=== PATIENT | male | born 1970 | race Caucasian/White ===

== ENCOUNTER 2017-03-20 15:31 | Inpatient (IN) | payer MEDICAID ==
[2017-03-20] MEDS ORDERED: KETOROLAC TROMETHAMINE INJ/PF 30 MG/1 ML SDV IV ONE (16:04)
--- NOTE | 2017-03-20 16:04 | ER Document Report ---
ED Extremity Problem, Lower <JOHNSON ARDON - Last Filed: 03/20/17 16:47> - General Mode of Arrival: Medic Information source: Patient TRAVEL OUTSIDE OF THE [place] IN LAST 30 DAYS: No <ZULEIKA RINCON - Last Filed: 03/20/17 16:56> - General Chief Complaint: Fall Injury Stated Complaint: RIGHT UPPER LEG INJURY Time Seen by Provider: 03/20/17 16:03 Notes: Patient is a 46-year-old male who presents to the emergency department today with complaints of right hip pain. Patient states he fell out of a [employer] truck. Patient states he landed on his right hip and has right hip pain. Patient states he is unable to move his right leg. (ZULEIKA RINCON) - Related Data Allergies/Adverse Reactions: Cephalosporins Allergy (Mild, Verified 03/20/17 15:47) Penicillins Allergy (Verified 03/20/17 15:47) phenytoin sodium [From Dilantin] Adverse Reaction (Intermediate, Verified 15:47) redness phenytoin sodium extended [From Dilantin] Adverse Reaction (Intermediate, Verified 03/20/17 15:47) redness Home Medications: Current Home Medications Pregabalin [Lyrica] 150 mg PO BID 03/20/17 [History] Past Medical History - General Information source: Patient - Social History Smoking Status: Current Every Day Smoker Cigarette use (# per day): Yes Frequency of alcohol use: None Drug Abuse: None Lives with: Family Family History: Reviewed & Not Pertinent Pulmonary Medical History: Reports: Hx Asthma, Hx Pneumonia Neurological Medical History: Reports: Hx Seizures - Onset at the age of 8. GI Medical History: Reports: Hx Gastroesophageal Reflux Disease Musculoskeltal Medical History: Reports Hx Arthritis - Lumbar spine, neck. Psychiatric Medical History: Reports: Hx Anxiety, Hx Attention Deficit Hyperactivity Disorder, Hx Depression Traumatic Medical History: Reports: Hx Traumatic Brain Injury Past Surgical History: Reports: Hx Adenoidectomy, Hx Neurologic Surgery - CRANIOTOMY, RECENT VNS IMPLANTATION (AUG 2012)., Hx Orthopedic Surgery - Right hand surgery, Hx Tonsillectomy - Immunizations Immunizations up to date: Yes Hx Diphtheria, Pertussis, Tetanus Vaccination: Yes - 2008 Hx Pneumococcal Vaccination: 07/01/00 <ZULEIKA RINCON - Last Filed: 03/20/17 16:56> Review of Systems - Review of Systems Constitutional: No symptoms reported EENT: No symptoms reported Cardiovascular: No symptoms reported Respiratory: No symptoms reported Gastrointestinal: No symptoms reported Genitourinary: No symptoms reported Male Genitourinary: No symptoms reported Musculoskeletal: See HPI, Joint pain - right hip Skin: No symptoms reported Hematologic/Lymphatic: No symptoms reported Neurological/Psychological: No symptoms reported -: Yes All other systems reviewed and negative <ZULEIKA RINCON - Last Filed: 03/20/17 16:56> Physical Exam <JOHNSON ARDON - Last Filed: 03/20/17 16:47> <ZULEIKA RINCON - Last Filed: 03/20/17 16:56> - Vital signs Vitals: Temp Pulse BP Pulse Ox 98.3 F 77 109/64 91 L 03/20/17 15:56 03/20/17 15:56 03/20/17 15:56 03/20/17 15:56 - Notes Notes: Physical Exam: General: Alert, appears uncomfortable secondary to pain. HEENT: Normocephalic. Atraumatic. PERRL. Extraocular movements intact. Oropharynx clear. Neck: Supple. Non-tender. Respiratory: No respiratory distress. Decreased breath sounds bilaterally. Cardiovascular: Regular rate and rhythm. Abdominal: Normal Inspection. Non-tender. No distension. Normal Bowel Sounds. Back: Non-tender. No deformity or step off. Extremities: Upper extremities: Normal inspection. Normal ROM. Lower extremities: Tenderness with palpation and range of motion testing in right hip. Neurovascularly intact distally. Neurological: Normal cognition. AAOx4. Normal speech. Psychological: Normal affect. Normal Mood. Skin: Warm. Dry. Normal color. (SERGEY,ZULEIKA) Course <JOHNSON ARDON - Last Filed: 03/20/17 16:47> <ZULEIKA RINCON - Last Filed: 03/20/17 16:56> - Re-evaluation Re-evalutation: 03/20/17 16:43 Patient has not eaten since last night, last drink was 15 min prior to accident. Just spoke with Dr. Ahuja, agrees to see the patient and consult but wants hospitalist to admit, states to let patient eat today, NPO ater midnight 03/20/17 16:51 Dr. Rodriges agrees to accept patient 03/20/17 16:52 Updated patient. States he took all medications this morning as directed. (ZULEIKA RINCON) - Vital Signs Vital signs: Temp Pulse Resp BP Pulse Ox 98.3 F 77 109/64 91 L 03/20/17 15:56 03/20/17 15:56 03/20/17 15:56 03/20/17 15:56 Discharge - Discharge Admitting Provider: Dr. Rodriges Unit Admitted: Surgical Floor <JOHNSON ARDON - Last Filed: 03/20/17 16:47> <ZULEIKA RINCON - Last Filed: 03/20/17 16:56> - Discharge Clinical Impression: Closed intertrochanteric fracture of right hip Condition: Good Disposition: ADMITTED INPATIENT Scribe Documentation - Scribe Written by Scribe:: Jodie Fang, 03/20/17 1619 acting as scribe for :: Salbador <ZULEIKA RINCON - Last Filed: 03/20/17 16:56>
--- NOTE | 2017-03-20 16:35 | RADIOLOGY REPORT (SQ) ---
EXAM DESCRIPTION: HIP RIGHT AP/LATERAL COMPLETED DATE/TIME: 03/20/2017 4:25 pm REASON FOR STUDY: injury COMPARISON: None. NUMBER OF VIEWS: Two views. TECHNIQUE: AP pelvis and additional frog-leg view of the right hip. LIMITATIONS: None. FINDINGS: MINERALIZATION: Normal. RIGHT HIP: There is an intertrochanteric fracture of hip. Lesser trochanter exists as a separate fra gment. LEFT HIP: No fracture or dislocation. No worrisome bone lesions. PUBIS AND ISCHIUM: No fracture. PELVIS: No fracture. SACRUM: No fracture or dislocation. No worrisome bone lesions. LOWER LUMBAR SPINE: No fracture or dislocation. No worrisome bone lesions. No significant disc disea se. SOFT TISSUES: No findings. OTHER: No other significant finding. IMPRESSION: Intertrochanteric fracture of the right hip. TECHNICAL DOCUMENTATION: JOB ID: [id number] [employer]- All Rights Reserved
--- NOTE | 2017-03-20 16:44 | RADIOLOGY REPORT (SQ) ---
EXAM DESCRIPTION: CHEST SINGLE VIEW COMPLETED DATE/TIME: 03/20/2017 4:31 pm REASON FOR STUDY: PER DR. ARDON FRACTURED HIP COMPARISON: 05/31/2016 EXAM PARAMETERS: NUMBER OF VIEWS: One view. TECHNIQUE: Single frontal radiographic view of the chest acquired. RADIATION DOSE: NA LIMITATIONS: None. FINDINGS: LUNGS AND PLEURA: No opacities, masses or pneumothorax. No pleural effusion. MEDIASTINUM AND HILAR STRUCTURES: No masses. Contour normal. HEART AND VASCULAR STRUCTURES: Heart normal in size. Normal vasculature. BONES: No acute findings. HARDWARE: Stimulator device is present. OTHER: No other significant finding. IMPRESSION: NO ACUTE RADIOGRAPHIC FINDING IN THE CHEST. TECHNICAL DOCUMENTATION: JOB ID: [id number]
[2017-03-20] MEDS ORDERED: ONDANSETRON 4 MG TAB.RAPDIS PO PRN (17:26)
[2017-03-20] MEDS ORDERED: IPRATROPIUM/ALBUTEROL 0.5-2.5 MG/3 ML AMPUL NEB PRN (17:26)
[2017-03-20] MEDS ORDERED: ACETAMINOPHEN 325 MG TABLET PO PRN (17:26)
[2017-03-20] MEDS ORDERED: NORMAL SALINE 1000 ML 1,000 ML IV PRN (17:26)
[2017-03-20 17:42] LABS: ABSOLUTE EOSINOPHILS # (AUTO) 0.1 10^3/uL (0.0-0.6); ABSOLUTE LYMPHOCYTES (AUTO) 2.5 10^3/uL (0.5-4.7); ABSOLUTE MONOCYTES (AUTO) 0.8 10^3/uL (0.1-1.4); ABSOLUTE NEUT (AUTO) 6.6 10^3/uL (1.7-8.2); BASOPHILS % (AUTO) 0.5 % (0-2); EOSINOPHILS % (AUTO) 1.2 % (0-6); HEMATOCRIT 36.9 % (37.9-51.0); HEMOGLOBIN 12.9 g/dL (13.5-17.0); HGB HCT DIFFERENCE 1.8; LYMPHOCYTES % (AUTO) 24.9 % (13-45); MEAN CORPUSCULAR HEMOGLOBIN 33.3 pg (27.0-33.4); MEAN CORPUSCULAR HGB CONC 34.9 g/dL (32.0-36.0); MEAN CORPUSCULAR VOLUME 95 fl (80-97); RED BLOOD COUNT 3.87 10^6/uL (4.35-5.55); RED CELL DISTRIBUTION WIDTH 13.7 % (11.5-14.0); SEGMENTED NEUTROPHILS % (AUTO) 65.4 % (42-78); WHITE BLOOD COUNT 10.1 10^3/uL (4.0-10.5)
[2017-03-20] MEDS ORDERED: HYDROCODONE/ACETAMINOPHEN 7.5-325 MG TABLET PO PRN (17:43)
[2017-03-20] MEDS ORDERED: LORAZEPAM INJ 2 MG/1 ML VIAL IV PRN (17:48)
[2017-03-20 17:50] LABS: PROTHROMBIN TIME 13.5 SEC (11.4-15.4)
[2017-03-20 17:53] LABS: ALANINE AMINOTRANSFERASE 29 U/L (21-72); ALBUMIN 4.1 g/dL (3.5-5.0); ALKALINE PHOSPHATASE 111 U/L (38-126); ANION GAP 9 (5-19); ASPARTATE AMINO TRANSFERASE 34 U/L (17-59); BILIRUBIN,DIRECT 0.4 mg/dL (0.0-0.4); BILIRUBIN,TOTAL 0.7 mg/dL (0.2-1.3); BLOOD UREA NITROGEN 21 mg/dL (7-20); CALCIUM 9.4 mg/dL (8.4-10.2); CARBON DIOXIDE 31 mmol/L (22-30); CHLORIDE 96 mmol/L (98-107); CREATININE RESULT 1.06 mg/dL (0.52-1.25); GLUCOSE 81 mg/dL (75-110); POTASSIUM 3.1 mmol/L (3.6-5.0); SODIUM 135.8 mmol/L (137-145); TOTAL PROTEIN 6.8 g/dL (6.3-8.2)
[2017-03-20] MEDS ORDERED: POTASSIUM CHLORIDE 10 MEQ TABLET.SA PO ONE (18:09)
--- NOTE | 2017-03-20 18:14 | PDOC H&P ---
History of Present Illness Admission Date/PCP: 03/20/17 17:30 SUHAIL UREÑA MD Patient complains of: Right Hip Pain History of Present Illness: EULALIO CASE is a 46 year old male presents to the hospital after falling off the back of truck today. Patient states that he was trying to step off of the back of a truck when he lost his balance and fell on his right side. Patient states that he felt immediate right hip pain after landing on the ground. Patient also reports that he scraped his right elbow. Patient denies any chest pain shortness of breath fever nausea vomiting or diarrhea. Patient does report having productive cough. Pt states that phlegm has been brown to yellow in color. Patient reports that he usually has one seizure a month to one seizure every 2 months[address] Patient reports that Dr. Bolaños is his neurologist. Past Medical History Pulmonary Medical History: Reports: Asthma, Pneumonia Neurological Medical History: Reports: Seizures - Onset at the age of 8. GI Medical History: Reports: Gastroesophageal Reflux Disease Musculoskeltal Medical History: Reports: Arthritis - Lumbar spine, neck. Psychiatric Medical History: Reports: Attention Deficit Hyperactivity Disorder, Depression Traumatic Medical History: Reports: Traumatic Brain Injury Hematology: Denies: Anemia Past Surgical History Past Surgical History: Reports: Orthopedic Surgery - Right hand surgery, Tonsillectomy Social History Lives with: Family Smoking Status: Current Every Day Smoker Frequency of Alcohol Use: Rare Family History Family History: Reviewed & Not Pertinent Parental Family History Reviewed: Yes Children Family History Reviewed: Yes Sibling(s) Family History Reviewed.: Yes Medication/Allergy Home Medications: Cetirizine HCl [Zyrtec 10 mg Tablet] 10 mg PO DAILY 03/20/17 Hydrochlorothiazide [Hydrodiuril 25 mg Tablet] 25 mg PO DAILY 03/20/17 Lacosamide [Vimpat] 200 mg PO Q12 03/20/17 Levetiracetam [Levetiracetam ER] 1,000 mg PO Q12 03/20/17 Pregabalin [Lyrica] 150 mg PO Q12 03/20/17 Allergies/Adverse Reactions: Cephalosporins Allergy (Mild, Verified 03/20/17 15:47) Penicillins Allergy (Verified 03/20/17 15:47) phenytoin sodium [From Dilantin] Adverse Reaction (Intermediate, Verified 15:47) redness phenytoin sodium extended [From Dilantin] Adverse Reaction (Intermediate, Verified 03/20/17 15:47) redness Review of Systems Constitutional: ABSENT: chills, fever(s), headache(s), weight gain, weight loss Eyes: ABSENT: visual disturbances Ears: ABSENT: hearing changes Cardiovascular: ABSENT: chest pain, dyspnea on exertion, edema, orthropnea, palpitations Respiratory: ABSENT: cough, hemoptysis Gastrointestinal: ABSENT: abdominal pain, constipation, diarrhea, hematemesis, hematochezia, nausea, vomiting Genitourinary: ABSENT: dysuria, hematuria Musculoskeletal: ABSENT: joint swelling Integumentary: ABSENT: rash, wounds Neurological: PRESENT: other - Seizure Psychiatric: ABSENT: anxiety, depression, homidical ideation, suicidal ideation Endocrine: ABSENT: cold intolerance, heat intolerance, polydipsia, polyuria Hematologic/Lymphatic: ABSENT: easy bleeding, easy bruising Physical Exam Vital Signs: Temp Pulse Resp BP Pulse Ox 98.3 F 77 109/64 91 L 03/20/17 15:56 03/20/17 15:56 03/20/17 15:56 03/20/17 15:56 General appearance: PRESENT: no acute distress, well-developed, well-nourished Head exam: PRESENT: atraumatic, normocephalic Eye exam: PRESENT: conjunctiva pink, EOMI, PERRLA. ABSENT: scleral icterus Ear exam: PRESENT: normal external ear exam Mouth exam: PRESENT: moist, tongue midline Neck exam: ABSENT: carotid bruit, JVD, lymphadenopathy, thyromegaly Respiratory exam: PRESENT: clear to auscultation hitesh. ABSENT: rales, rhonchi, wheezes Cardiovascular exam: PRESENT: RRR. ABSENT: diastolic murmur, rubs, systolic murmur Pulses: PRESENT: normal dorsalis pedis pul Vascular exam: PRESENT: normal capillary refill GI/Abdominal exam: PRESENT: normal bowel sounds, soft. ABSENT: distended, guarding, mass, organolmegaly, rebound, tenderness Rectal exam: PRESENT: deferred Extremities exam: PRESENT: other - right elbow abrasion, right hip tenderness to palpation Musculoskeletal exam: PRESENT: tenderness - right hip tenderness Neurological exam: PRESENT: alert, awake, oriented to person, oriented to place , oriented to time, oriented to situation, CN II-XII grossly intact. ABSENT: motor sensory deficit Psychiatric exam: PRESENT: appropriate affect, normal mood. ABSENT: homicidal ideation, suicidal ideation Skin exam: PRESENT: other - +right elbow abrasion Results Impressions: Chest X-Ray 03/20/17 00:00 IMPRESSION: NO ACUTE RADIOGRAPHIC FINDING IN THE CHEST. Hip/Pelvis X-Ray 03/20/17 15:38 IMPRESSION: Intertrochanteric fracture of the right hip. Assessment & Plan - Diagnosis (1) Closed intertrochanteric fracture of right hip Qualifiers: Encounter type: initial encounter Is this a current diagnosis for this admission?: Yes Plan: Will have Orthopedic see pt. Will place on pain medication. (2) Abrasion of right elbow Qualifiers: Encounter type: initial encounter Qualified Code(s): S50.311A - Abrasion of right elbow, initial encounter Is this a current diagnosis for this admission?: Yes Plan: Bacitracin. (3) Hypokalemia Is this a current diagnosis for this admission?: Yes Plan: Potassium Chloride 60 mEq PO X 1. Will check BMP and magnesium. (4) Seizure Is this a current diagnosis for this admission?: Yes Plan: Will continue home medications. Will write for Ativan PRN. (5) DVT prophylaxis Is this a current diagnosis for this admission?: Yes Plan: heparin. Communication placed to hold heparin day of surgery. - Time Time Spent: 30 to 50 Minutes
--- NOTE | 2017-03-20 18:39 | PDOC CONSULTATION ---
Consultation Consult Date: 03/20/17 Consult reason:: Right intertrochanteric hip fracture History of Present Illness Admission Date/PCP: 03/20/17 17:30 SUHAIL UREÑA MD Patient complains of: Right hip pain and inability to weight-bear History of Present Illness: 46-year-old gentleman who is status post fall today off of the back of a truck who fell directly onto his right hip. Immediately had pain and deformity with inability to weight-bear. Patient was brought by EMS to the hospital where he was diagnosed with a right intertrochanteric hip fracture. Patient has history of seizures but believe this fall was due to mechanical cause and not from seizure. Denies any numbness or tingling or paresthesias. Complains of attempted range of motion will cause significant pain in the groin and is sharp pain. No other extremity complaints of pain or deformity. pain 5 out of 5 with motion. Past Medical History Pulmonary Medical History: Reports: Asthma, Pneumonia Neurological Medical History: Reports: Seizures - Onset at the age of 8. GI Medical History: Reports: Gastroesophageal Reflux Disease Musculoskeltal Medical History: Reports: Arthritis - Lumbar spine, neck. Psychiatric Medical History: Reports: Attention Deficit Hyperactivity Disorder, Depression Traumatic Medical History: Reports: Traumatic Brain Injury Hematology: Denies: Anemia Past Surgical History Past Surgical History: Reports: Orthopedic Surgery - Right hand surgery, Tonsillectomy Social History Lives with: Family Smoking Status: Current Every Day Smoker Frequency of Alcohol Use: Rare - Advance Directive Resuscitation Status: Full Code Family History Family History: Reviewed & Not Pertinent Parental Family History Reviewed: No Children Family History Reviewed: No Sibling(s) Family History Reviewed.: No Medication/Allergy Home Medications: Cetirizine HCl [Zyrtec 10 mg Tablet] 10 mg PO DAILY 03/20/17 Hydrochlorothiazide [Hydrodiuril 25 mg Tablet] 25 mg PO DAILY 03/20/17 Lacosamide [Vimpat] 200 mg PO Q12 03/20/17 Levetiracetam [Levetiracetam ER] 1,000 mg PO Q12 03/20/17 Pregabalin [Lyrica] 150 mg PO Q12 03/20/17 Allergies/Adverse Reactions: Cephalosporins Allergy (Mild, Verified 03/20/17 15:47) Penicillins Allergy (Verified 03/20/17 15:47) phenytoin sodium [From Dilantin] Adverse Reaction (Intermediate, Verified 15:47) redness phenytoin sodium extended [From Dilantin] Adverse Reaction (Intermediate, Verified 03/20/17 15:47) redness Review of Systems All systems: reviewed and no additional remarkable complaints except as stated Physical Exam Vital Signs: Temp Pulse Resp BP Pulse Ox 36.8 C 77 109/64 91 L 03/20/17 15:56 03/20/17 15:56 03/20/17 15:56 03/20/17 15:56 General appearance: PRESENT: no acute distress Head exam: PRESENT: atraumatic Eye exam: PRESENT: EOMI. ABSENT: conjunctival injection, nystagmus, periorbital swelling Neck exam: ABSENT: lymphadenopathy, tracheal deviation Respiratory exam: PRESENT: symmetrical, unlabored. ABSENT: tachypnea Pulses: PRESENT: normal dorsalis pedis pul Vascular exam: PRESENT: normal capillary refill GI/Abdominal exam: PRESENT: soft. ABSENT: organolmegaly, tenderness Neurological exam: PRESENT: alert, awake, oriented to person, oriented to place , oriented to time Skin exam: PRESENT: intact Adult Front & Back Image: 1 - Right lower extremity is shortened and externally rotated. Tender palpation over the groin. Pain with attempted range of motion in the groin. Distally sensation is intact to light touch. Good capillary refill and pedal pulse. 5 out of 5 motor distally. Results Impressions: Chest X-Ray 03/20/17 00:00 IMPRESSION: NO ACUTE RADIOGRAPHIC FINDING IN THE CHEST. Hip/Pelvis X-Ray 03/20/17 15:38 IMPRESSION: Intertrochanteric fracture of the right hip. Status: Image reviewed by me Assessment & Plan - Diagnosis (1) Closed intertrochanteric fracture of right hip Qualifiers: Encounter type: initial encounter Fracture alignment: displaced Qualified Code(s): S72.141A - Displaced intertrochanteric fracture of right femur, initial encounter for closed fracture Is this a current diagnosis for this admission?: Yes Plan: 46-year-old gentleman with displaced right intertrochanteric hip fracture. Discussed the pros and cons of proceeding with intramedullary nailing and fixation of the right hip fracture. Risk and benefits were discussed and the patient agreed to consent for surgery. We will place him n.p.o. and have him bedrest for tonight. No anticoagulation tonight. Will plan to proceed with surgery tomorrow. Continue pain control in the meantime.
--- NOTE | 2017-03-20 18:45 | EKG REPORT ---
SEVERITY:- NORMAL ECG - SINUS RHYTHM : Confirmed by: Geovanni Perez MD 20-Mar-2017 18:44:43
[2017-03-20] MEDS: HEPARIN SOD (PORCINE) 5,000 UNIT/ML 1 ML SYRINGE SUBCUT SCH (21:44)
[2017-03-20] MEDS ORDERED: (PENDING PHARMACY ID) (Lacosamide [Vimpat] 200 MG) PO SCH (22:00)
[2017-03-20] MEDS: LEVETIRACETAM XR 500 MG TAB.SR.24H PO SCH (22:03)
[2017-03-20] MEDS: LACOSAMIDE 100 MG TABLET PO SCH (22:10)
[2017-03-20] MEDS: PREGABALIN 75 MG CAPSULE PO SCH (22:10)
[2017-03-21 01:17] LABS: APPEARANCE,URINE CLEAR; BILIRUBIN,URINE NEGATIVE (NEGATIVE); GLUCOSE, URINE NEGATIVE (NEGATIVE); KETONES,URINE NEGATIVE (NEGATIVE); LEUKOCYTE ESTERASE,URINE NEGATIVE (NEGATIVE); NITRITE,URINE NEGATIVE (NEGATIVE); PROTEIN,URINE NEGATIVE (NEGATIVE); URINE SPECIFIC GRAVITY 1.018
[2017-03-21] MEDS: MORPHINE SULFATE 10 MG/ML INJ IV PRN (02:57)
[2017-03-21 04:35] LABS: ABSOLUTE EOSINOPHILS # (AUTO) 0.2 10^3/uL (0.0-0.6); ABSOLUTE LYMPHOCYTES (AUTO) 2.5 10^3/uL (0.5-4.7); ABSOLUTE MONOCYTES (AUTO) 0.9 10^3/uL (0.1-1.4); ABSOLUTE NEUT (AUTO) 6.9 10^3/uL (1.7-8.2); BASOPHILS % (AUTO) 0.4 % (0-2); HEMATOCRIT 32.6 % (37.9-51.0); HEMOGLOBIN 11.7 g/dL (13.5-17.0); HGB HCT DIFFERENCE 2.5; LYMPHOCYTES % (AUTO) 23.4 % (13-45); MEAN CORPUSCULAR HGB CONC 35.8 g/dL (32.0-36.0); MEAN CORPUSCULAR VOLUME 95 fl (80-97); MONOCYTES % (AUTO) 8.5 % (3-13); RED BLOOD COUNT 3.44 10^6/uL (4.35-5.55); RED CELL DISTRIBUTION WIDTH 13.8 % (11.5-14.0); SEGMENTED NEUTROPHILS % (AUTO) 65.7 % (42-78); WHITE BLOOD COUNT 10.5 10^3/uL (4.0-10.5)
[2017-03-21 04:44] LABS: PARTIAL THROMBOPLASTIN TIME 31.2 SEC (23.5-35.8)
[2017-03-21 04:48] LABS: ALANINE AMINOTRANSFERASE 29 U/L (21-72); ALBUMIN 3.4 g/dL (3.5-5.0); ALKALINE PHOSPHATASE 101 U/L (38-126); ANION GAP 9 (5-19); ASPARTATE AMINO TRANSFERASE 30 U/L (17-59); BILIRUBIN,DIRECT 0.4 mg/dL (0.0-0.4); BILIRUBIN,TOTAL 0.6 mg/dL (0.2-1.3); BLOOD UREA NITROGEN 22 mg/dL (7-20); CALCIUM 8.9 mg/dL (8.4-10.2); CARBON DIOXIDE 29 mmol/L (22-30); CHLORIDE 101 mmol/L (98-107); CREATININE RESULT 1.05 mg/dL (0.52-1.25); GLUCOSE 90 mg/dL (75-110); POTASSIUM 3.5 mmol/L (3.6-5.0); SODIUM 138.8 mmol/L (137-145); TOTAL PROTEIN 5.7 g/dL (6.3-8.2)
[2017-03-21] MEDS: HEPARIN SOD (PORCINE) 5,000 UNIT/ML 1 ML SYRINGE SUBCUT SCH ×2 (05:01→13:58)
[2017-03-21] MEDS ORDERED: LANSOPRAZOLE 30 MG TAB.RAP.DR PO SCH (06:00)
[2017-03-21] MEDS: LACOSAMIDE 100 MG TABLET PO SCH ×2 (10:17→22:31)
[2017-03-21] MEDS: HYDROCHLOROTHIAZIDE 25 MG TABLET PO SCH (10:17)
[2017-03-21] MEDS: PREGABALIN 75 MG CAPSULE PO SCH ×2 (10:17→22:31)
[2017-03-21] MEDS: CETIRIZINE 10 MG TABLET PO SCH (10:17)
[2017-03-21] MEDS: LEVETIRACETAM XR 500 MG TAB.SR.24H PO SCH ×2 (10:29→22:31)
[2017-03-21] MEDS ORDERED: CLINDAMYCIN 600 MG/D5W RTU 600 MG/50 ML RTUPB IV ONE (12:18)
[2017-03-21] MEDS ORDERED: ACETAMINOPHEN 100 ML IV ONE (12:38)
[2017-03-21] MEDS ORDERED: PROPOFOL INJ 200 MG/20 ML VIAL IV ONE (12:38)
[2017-03-21] MEDS ORDERED: FENTANYL CITRATE INJ/PF 250 MCG/5 ML AMPULE ONE (12:38)
[2017-03-21] MEDS ORDERED: MIDAZOLAM 2 MG/2 ML INJ ONE (12:38)
[2017-03-21] MEDS ORDERED: HYDROMORPHONE HCL INJ/PF 2 MG/ML AMPULE ONE (12:39)
[2017-03-21] MEDS ORDERED: IBUPROFEN INJ 800 MG/8 ML VIAL IV ONE (12:39)
[2017-03-21] MEDS ORDERED: PROMETHAZINE HCL INJ 25 MG/1 ML VIAL IV PRN ×2 (13:26)
[2017-03-21] MEDS ORDERED: ONDANSETRON HCL INJ/PF 4 MG/2 ML SDV IV PRN (13:26)
[2017-03-21] MEDS ORDERED: FENTANYL CITRATE INJ/PF 100 MCG/2 ML AMPUL IV PRN ×3 (13:26)
[2017-03-21] MEDS ORDERED: MORPHINE SULFATE 10 MG/ML INJ IV PRN (13:26)
[2017-03-21] MEDS ORDERED: DIPHENHYDRAMINE HCL 50 MG/ML VIAL IV PRN (13:26)
[2017-03-21] MEDS ORDERED: MEPERIDINE HCL/PF INJ 25 MG/1 ML DISP.SYRIN IV PRN (13:26)
[2017-03-21] MEDS ORDERED: POTASSIUM CHLORIDE 10 MEQ TABLET.SA PO ONE (14:28)
--- NOTE | 2017-03-21 14:32 | PDOC PROGRESS REPORT ---
Subjective Progress Note for:: 03/21/17 Subjective:: Pt seen earlier this morning prior to surgery. Pt states that he is still having right leg/hip pain. Physical Exam Vital Signs: Temp Pulse Resp BP Pulse Ox 97.9 F 63 16 122/67 100 03/21/17 12:55 03/21/17 12:55 03/21/17 12:55 03/21/17 12:55 03/21/17 12:55 Intake & Output 03/20/17 03/21/17 03/22/17 06:59 06:59 06:59 Intake Total 240 100 Output Total 100 Balance 240 0 Weight 91.7 kg General appearance: PRESENT: no acute distress, well-developed, well-nourished Head exam: PRESENT: atraumatic, normocephalic Eye exam: PRESENT: conjunctiva pink, EOMI. ABSENT: scleral icterus Ear exam: PRESENT: normal external ear exam Mouth exam: PRESENT: moist, tongue midline Neck exam: ABSENT: carotid bruit, JVD, lymphadenopathy, thyromegaly Respiratory exam: PRESENT: clear to auscultation hitesh. ABSENT: rales, rhonchi, wheezes Cardiovascular exam: PRESENT: RRR. ABSENT: diastolic murmur, rubs, systolic murmur Pulses: PRESENT: normal dorsalis pedis pul Vascular exam: PRESENT: normal capillary refill GI/Abdominal exam: PRESENT: normal bowel sounds, soft. ABSENT: distended, guarding, mass, organolmegaly, rebound, tenderness Rectal exam: PRESENT: deferred Extremities exam: PRESENT: full ROM. ABSENT: calf tenderness, clubbing, pedal edema Neurological exam: PRESENT: alert, awake, oriented to person, oriented to place , oriented to time, oriented to situation, CN II-XII grossly intact. ABSENT: motor sensory deficit Psychiatric exam: PRESENT: appropriate affect, normal mood. ABSENT: homicidal ideation, suicidal ideation Skin exam: PRESENT: dry, intact, warm. ABSENT: cyanosis, rash Results Laboratory Results: 03/21/17 04:08 03/21/17 04:08 03/20/17 03/21/17 03/21/17 23:45 04:08 04:08 WBC 10.5 RBC 3.44 L Hgb 11.7 L Hct 32.6 L MCV 95 MCH 34.0 H MCHC 35.8 RDW 13.8 Plt Count 172 Seg Neutrophils % 65.7 Lymphocytes % 23.4 Monocytes % 8.5 Eosinophils % 2.0 Basophils % 0.4 Absolute Neutrophils 6.9 Absolute Lymphocytes 2.5 Absolute Monocytes 0.9 Absolute Eosinophils 0.2 Absolute Basophils 0.0 Sodium 138.8 Potassium 3.5 L Chloride 101 Carbon Dioxide 29 Anion Gap 9 BUN 22 H Creatinine 1.05 Est GFR ( Amer) > 60 Est GFR (Non-Af Amer) > 60 Glucose 90 Calcium 8.9 Total Bilirubin 0.6 AST 30 ALT 29 Alkaline Phosphatase 101 Total Protein 5.7 L Albumin 3.4 L Urine Color YELLOW Urine Appearance CLEAR Urine pH 6.0 Ur Specific B[place] 1.018 Urine Protein NEGATIVE Urine Glucose (UA) NEGATIVE Urine Ketones NEGATIVE Urine Blood NEGATIVE Urine Nitrite NEGATIVE Ur Leukocyte Esterase NEGATIVE Urine WBC (Auto) 2 Urine RBC (Auto) 0 Impressions: Chest X-Ray 03/20/17 00:00 IMPRESSION: NO ACUTE RADIOGRAPHIC FINDING IN THE CHEST. Hip/Pelvis X-Ray 03/20/17 15:38 IMPRESSION: Intertrochanteric fracture of the right hip. Assessment & Plan - Diagnosis (1) Closed intertrochanteric fracture of right hip Qualifiers: Encounter type: initial encounter Fracture alignment: displaced Qualified Code(s): S72.141A - Displaced intertrochanteric fracture of right femur, initial encounter for closed fracture Is this a current diagnosis for this admission?: Yes Plan: Pt scheduled for surgery. (2) Abrasion of right elbow Qualifiers: Encounter type: initial encounter Qualified Code(s): S50.311A - Abrasion of right elbow, initial encounter Is this a current diagnosis for this admission?: Yes Plan: Bacitracin. (3) Hypokalemia Is this a current diagnosis for this admission?: Yes Plan: Pt given Potassium Replacement. Will check Potassium and Magnesium in a.m. (4) Seizure Is this a current diagnosis for this admission?: Yes Plan: Will continue home medications. Will write for Ativan PRN. (5) DVT prophylaxis Is this a current diagnosis for this admission?: Yes Plan: Heparin.
--- NOTE | 2017-03-21 14:48 | Operative Report ---
Operative Report DATE OF SURGERY: 03/21/17 PREOPERATIVE DIAGNOSIS: Right intertrochanteric hip fracture POSTOPERATIVE DIAGNOSIS: Same OPERATION: Cephalo-medullary nailing of right intertrochanteric fracture SURGEON: CARLO BATEMAN ANESTHESIA: GA TISSUE REMOVED OR ALTERED: None COMPLICATIONS: Guidewire perforating the knee joint. Guidewire was successfully removed on C- arm. ESTIMATED BLOOD LOSS: 100 mL INTRAOPERATIVE FINDINGS: As above PROCEDURE: Patient was seen and evaluated in the preoperative holding area. The right lower extremity was initialized and marked. Patient received 600 mg grams of clindamycin for bacterial prophylaxis. Patient was taken back to the operative room where transferred operative table. Patient was placed under spinal anesthesia. Once adequate anesthetized he was carefully placed onto the hip positioner the nonoperative lower extremity and bilateral upper extremities were carefully padded and the peroneal nerve was padded and on the nonoperative extremity. The operative extremity was placed in a traction along with adduction and internal rotation. A surgical team debriefing was performed ensuring all instrumentation was available, the surgical procedure was discussed with possible concerns reviewed. A timeout was done identifying correct patient, procedure and extremity everyone in attendance agree with this and verbalized no concerns. Reduction maneuver with the use of the hip traction table were done and C-arm fluoroscopy was used to confirm optimal reduction of the intertrochanteric fracture. Once this was confirmed the lower extremity was prepped with chlor prep and draped in a sterile fashion. At this point a small skin incision was made proximal to the greater trochanter. The guidewire was placed onto the tip of the trochanter advanced down to the level of the lesser trochanter. AP and lateral fluoroscopy was used to confirm appropriate placement of the guidewire. The skin incision was then extended and the underlying fascia opened up carefully to the tip of the greater trochanter. The entry reamer was then used and advanced to the level of the lesser trochanter. At this point we placed our guidewire all way down to the knee. C-arm pictures confirming placement of the guidewire intramedullary and at the diaphyseal metaphyseal junction of the femur distally. We proceeded to measure 420 mm length nail. At this point we proceeded then to use ream starting with a 8 [address] way up to a 12.5 mm reamer. This was removed and then the actual nail was introduced and hammered down the canal. We noticed some difficulty placing the nail distally and requiring some significant effort and while we x-rayed the knee. There were had perforated the knee. We removed the nail with guidewire which showed that it was bent and was removed. This point the nail was placed successfully without the guidewire and confirmed with C-arm in both images. Once were secured and the nail with appropriate height proceeded to prepare for the lag screw. I turned my attention to the compression screw fixation in the femoral head. The trochars were advanced to the skin, a skin incision was made, careful dissection down to the fascia to the lateral femoral cortex was then partaken. The guidewire was then used and placed in the center center position with the tip apex distance less than 25 mm. Once this position was obtained the size of the compression screw was measured. AP and lateral fluoroscopy used to confirm appropriate placement of our guide wire. The step reamer was used to drill up through the femoral neck and head. I then carefully advanced the compression screw into position. AP and lateral fluoroscopy was done to confirm appropriate placement of the compression screw this was then locked into position proximally. The compression screw was then disengaged from its mounting device and the guidewire was removed. Lastly proceeded with locking of the nail distally. Using the aiming arm the trochars were advanced to the skin, a skin incision was made. Careful dissection done with a hemostat to the lateral cortex of the femur. I then drilled the near and far cortices. Measured the appropriate sized distal locking screw and secured it into position. At this point AP/lateral and oblique views of the proximal and distal aspect of the nail were taken confirming appropriate placement of the compression screw, distal locking screw and intramedullary nail. Once this was confirmed I proceeded with copious irrigation of the proximal and distal wounds. The deep tissues were closed with 0 Vicryl suture, subcutaneous tissues were closed with 2-0 Vicryl. I used aleksey to close the skin. A dressing was placed. Sponge counts, instrument counts and needle counts were correct. Patient was then transferred from the operating room table to the operating room stretcher. The was no intraoperative complications patient tolerated procedure well was stable to PACU. Implants used: [place] 11 x 420 mm 125 Gamma Nail with a 105 mm compression screw Postoperative plan: Patient will begin physical therapy on postop day #1 with Xarelto daily.
[2017-03-21] MEDS ORDERED: ONDANSETRON 4 MG TAB.RAPDIS PO PRN (15:00)
[2017-03-21] MEDS ORDERED: MUPIROCIN 2% OINTMENT 22 GM TP ONE (15:00)
--- NOTE | 2017-03-21 15:11 | RADIOLOGY REPORT (SQ) ---
EXAM DESCRIPTION: FEMUR RIGHT; NO CHG FLUORO COMPLETED DATE/TIME: 03/21/2017 2:57 pm REASON FOR STUDY: ORIF RIGHT HIP/FEMUR ASSISTED W/ FLUORO IN OR COMPARISON: RIGHT HIP FILMS 03/20/2017 FLUOROSCOPY TIME: 2.2 minutes 5 digital C-arm images saved to PACS. TECHNIQUE: Intra-operative images acquired during surgical procedure to evaluate progress. NUMBER OF IMAGES: Cine fluoroscopic images. LIMITATIONS: None. FINDINGS: Intra procedural imaging and fluoro during ORIF right intertrochanteric fracture IMPRESSION: Intra procedural imaging and fluoro COMMENT: Quality ID [id number]: Final reports for procedures using fluoroscopy that document radiation exp osure indices, or exposure time and number of fluorographic images (if radiation exposure indices are not available) Please consult full operative report of the attending physician for description of the procedure. TECHNICAL DOCUMENTATION: JOB ID: [id number]- All Rights Reserved
[2017-03-21] MEDS ORDERED: HYDROCODONE/ACETAMINOPHEN 7.5-325 MG TABLET PO PRN (15:30)
--- NOTE | 2017-03-21 15:36 | RADIOLOGY REPORT (SQ) ---
EXAM DESCRIPTION: HIP RIGHT AP/LATERAL COMPLETED DATE/TIME: 03/21/2017 3:27 pm REASON FOR STUDY: Post op Pacu COMPARISON: Right hip films 03/20/2017 NUMBER OF VIEWS: AP pelvis, AP and frog-leg view right hip TECHNIQUE: Digital radiographic images of the right hip post-procedure. LIMITATIONS: None. FINDINGS: BONES: No worrisome or unexpected findings post-procedure. Good alignment the right prox imal femur intertrochanteric fracture. Persistent mild medial displacement of the lesser trochanter DEVICE: Right proximal femoral long intramedullary nail, lag screw. SOFT TISSUES: No worrisome findings. Expected postoperative soft tissue changes. IMPRESSION: SATISFACTORY POSTOPERATIVE RIGHT HIP. TECHNICAL DOCUMENTATION: JOB ID: [id number] [employer]- All Rights Reserved
[2017-03-21] MEDS: CLINDAMYCIN 600 MG/D5W RTU 600 MG/50 ML RTUPB IV SCH (18:42)
[2017-03-21] MEDS: MUPIROCIN 2% OINTMENT 22 GM TP SCH (18:42)
[2017-03-21] MEDS: RIVAROXABAN 10 MG TABLET PO SCH (22:31)
[2017-03-21] MEDS: RINGERS SOLUTION,LACTATED 1,000 ML IV PRN (22:38)
[2017-03-22] MEDS: CLINDAMYCIN 600 MG/D5W RTU 600 MG/50 ML RTUPB IV SCH (00:04)
[2017-03-22 04:57] LABS: HEMATOCRIT 28.6 % (37.9-51.0); HEMOGLOBIN 10.3 g/dL (13.5-17.0); HGB HCT DIFFERENCE 2.3; MEAN CORPUSCULAR HEMOGLOBIN 34.5 pg (27.0-33.4); MEAN CORPUSCULAR HGB CONC 36.1 g/dL (32.0-36.0); MEAN CORPUSCULAR VOLUME 96 fl (80-97); RED BLOOD COUNT 2.99 10^6/uL (4.35-5.55); RED CELL DISTRIBUTION WIDTH 13.8 % (11.5-14.0); WHITE BLOOD COUNT 13.9 10^3/uL (4.0-10.5)
[2017-03-22] MEDS: LANSOPRAZOLE 30 MG TAB.RAP.DR PO SCH (05:03)
[2017-03-22] MEDS: MORPHINE SULFATE 10 MG/ML INJ IV PRN (05:03)
[2017-03-22 05:23] LABS: ANION GAP 8 (5-19); BLOOD UREA NITROGEN 18 mg/dL (7-20); CALCIUM 8.6 mg/dL (8.4-10.2); CARBON DIOXIDE 28 mmol/L (22-30); CHLORIDE 100 mmol/L (98-107); CREATININE RESULT 0.98 mg/dL (0.52-1.25); GLUCOSE 168 mg/dL (75-110); MAGNESIUM 2.2 mg/dL (1.6-2.3); POTASSIUM 4.4 mmol/L (3.6-5.0); SODIUM 135.7 mmol/L (137-145)
[2017-03-22] MEDS: LACOSAMIDE 100 MG TABLET PO SCH ×2 (09:47→22:29)
[2017-03-22] MEDS: MUPIROCIN 2% OINTMENT 22 GM TP SCH ×2 (09:47→18:37)
[2017-03-22] MEDS: PREGABALIN 75 MG CAPSULE PO SCH ×2 (09:47→22:30)
[2017-03-22] MEDS: CETIRIZINE 10 MG TABLET PO SCH (09:47)
[2017-03-22] MEDS: HYDROCHLOROTHIAZIDE 25 MG TABLET PO SCH (09:47)
[2017-03-22] MEDS: OXYCODONE HCL IR 5 MG TABLET PO PRN ×2 (09:52→20:05)
[2017-03-22] MEDS: LEVETIRACETAM XR 500 MG TAB.SR.24H PO SCH ×2 (10:00→22:29)
--- NOTE | 2017-03-22 11:25 | PDOC PROGRESS REPORT ---
Subjective Progress Note for:: 03/22/17 Subjective:: Pt states that he is doing well. Pt states that he currently is not having pain. Physical Exam Vital Signs: Temp Pulse Resp BP Pulse Ox 97.9 F 64 16 120/58 L 95 03/22/17 07:27 03/22/17 07:27 03/22/17 07:27 03/22/17 07:27 03/22/17 07:27 Intake & Output 03/21/17 03/22/17 03/23/17 06:59 06:59 06:59 Intake Total 240 4340 Output Total 1200 Balance 240 3140 Weight 91.7 kg 94.7 kg General appearance: PRESENT: no acute distress, well-developed, well-nourished Head exam: PRESENT: atraumatic, normocephalic Eye exam: PRESENT: conjunctiva pink, EOMI. ABSENT: scleral icterus Ear exam: PRESENT: normal external ear exam Mouth exam: PRESENT: moist, tongue midline Neck exam: ABSENT: carotid bruit, JVD, lymphadenopathy, thyromegaly Respiratory exam: PRESENT: clear to auscultation hitesh. ABSENT: rales, rhonchi, wheezes Cardiovascular exam: PRESENT: RRR. ABSENT: diastolic murmur, rubs, systolic murmur Pulses: PRESENT: normal dorsalis pedis pul Vascular exam: PRESENT: normal capillary refill GI/Abdominal exam: PRESENT: normal bowel sounds, soft. ABSENT: distended, guarding, mass, organolmegaly, rebound, tenderness Rectal exam: PRESENT: deferred Extremities exam: PRESENT: full ROM. ABSENT: calf tenderness, clubbing, pedal edema Neurological exam: PRESENT: alert, awake, oriented to person, oriented to place , oriented to time, oriented to situation, CN II-XII grossly intact. ABSENT: motor sensory deficit Psychiatric exam: PRESENT: appropriate affect, normal mood. ABSENT: homicidal ideation, suicidal ideation Skin exam: PRESENT: dry, warm Results Laboratory Results: 03/22/17 04:02 03/22/17 04:02 03/22/17 03/22/17 04:02 04:02 WBC 13.9 H RBC 2.99 L Hgb 10.3 L Hct 28.6 L MCV 96 MCH 34.5 H MCHC 36.1 H RDW 13.8 Plt Count 158 Sodium 135.7 L Potassium 4.4 Chloride 100 Carbon Dioxide 28 Anion Gap 8 BUN 18 Creatinine 0.98 Est GFR ( Amer) > 60 Est GFR (Non-Af Amer) > 60 Glucose 168 H Calcium 8.6 Magnesium 2.2 Impressions: Chest X-Ray 03/20/17 00:00 IMPRESSION: NO ACUTE RADIOGRAPHIC FINDING IN THE CHEST. Femur X-Ray 03/21/17 00:00 IMPRESSION: Intra procedural imaging and fluoro Fluoroscopy 03/21/17 00:00 IMPRESSION: Intra procedural imaging and fluoro Hip/Pelvis X-Ray 03/21/17 00:00 IMPRESSION: SATISFACTORY POSTOPERATIVE RIGHT HIP. Assessment & Plan - Diagnosis (1) Closed intertrochanteric fracture of right hip Qualifiers: Encounter type: initial encounter Fracture alignment: displaced Qualified Code(s): S72.141A - Displaced intertrochanteric fracture of right femur, initial encounter for closed fracture Is this a current diagnosis for this admission?: Yes Plan: S/P Repair: Per Ortho. (2) Abrasion of right elbow Qualifiers: Encounter type: initial encounter Qualified Code(s): S50.311A - Abrasion of right elbow, initial encounter Is this a current diagnosis for this admission?: Yes Plan: Bacitracin. (3) Hypokalemia Is this a current diagnosis for this admission?: Yes Plan: Resolved. (4) Seizure Is this a current diagnosis for this admission?: Yes Plan: Will continue home medications. Ativan PRN. (5) DVT prophylaxis Is this a current diagnosis for this admission?: Yes Plan: Heparin. - Time Time Spent with patient: 15-24 minutes
[2017-03-22] MEDS ORDERED: METOCLOPRAMIDE HCL INJ/PF 10 MG/2 ML SDV ONE (12:37)
[2017-03-22] MEDS ORDERED: DEXAMETHASONE SOD PHOSPHATE INJ 4 MG/1 ML VIAL ONE (12:37)
[2017-03-22] MEDS ORDERED: GLYCOPYRROLATE INJ 0.4 MG/2 ML VIAL ONE (12:37)
[2017-03-22] MEDS ORDERED: ONDANSETRON HCL INJ/PF 4 MG/2 ML SDV ONE (12:37)
[2017-03-22] MEDS ORDERED: SUCCINYLCHOLINE CHLORIDE INJ 200 MG/10 ML VIAL ONE (12:37)
[2017-03-22] MEDS ORDERED: LIDOCAINE 2% INJ-PF (20 MG/ML) 10 ML AMPUL ONE (12:37)
--- NOTE | 2017-03-22 16:46 | PDOC PROGRESS REPORT ---
Subjective Progress Note for:: 03/22/17 Subjective:: Patient eating his dinner comfortably in bed. States he worked with physical therapy today to set at the edge of the bed and stand up and sit back down. Unable to ambulate. Physical Exam Vital Signs: Temp Pulse Resp BP Pulse Ox 36.9 C 85 16 115/62 97 03/22/17 16:20 03/22/17 16:20 03/22/17 16:20 03/22/17 16:20 03/22/17 16:20 Intake & Output 03/21/17 03/22/17 03/23/17 06:59 06:59 06:59 Intake Total 240 4340 Output Total 1200 Balance 240 3140 Weight 91.7 kg 94.7 kg General appearance: PRESENT: no acute distress Adult Front & Back Image: 1 - Dressing dry clean and intact. No ecchymosis. Positive swelling and tenderness. Neurovascular intact distally. Results Laboratory Results: 03/22/17 04:02 03/22/17 04:02 03/22/17 03/22/17 04:02 04:02 WBC 13.9 H RBC 2.99 L Hgb 10.3 L Hct 28.6 L MCV 96 MCH 34.5 H MCHC 36.1 H RDW 13.8 Plt Count 158 Sodium 135.7 L Potassium 4.4 Chloride 100 Carbon Dioxide 28 Anion Gap 8 BUN 18 Creatinine 0.98 Est GFR ( Amer) > 60 Est GFR (Non-Af Amer) > 60 Glucose 168 H Calcium 8.6 Magnesium 2.2 Impressions: Chest X-Ray 03/20/17 00:00 IMPRESSION: NO ACUTE RADIOGRAPHIC FINDING IN THE CHEST. Femur X-Ray 03/21/17 00:00 IMPRESSION: Intra procedural imaging and fluoro Fluoroscopy 03/21/17 00:00 IMPRESSION: Intra procedural imaging and fluoro Hip/Pelvis X-Ray 03/21/17 00:00 IMPRESSION: SATISFACTORY POSTOPERATIVE RIGHT HIP. Status: Image reviewed by me Assessment & Plan - Diagnosis (1) Closed intertrochanteric fracture of right hip Qualifiers: Encounter type: initial encounter Fracture alignment: displaced Qualified Code(s): S72.141A - Displaced intertrochanteric fracture of right femur, initial encounter for closed fracture Is this a current diagnosis for this admission?: Yes - Plan Summary Plan Summary: Patient is 46-year-old male POD #2 from cephalo-medullary nailing of right intertrochanteric hip fracture Continue physical therapy Continue pain control Continue DVT prophylaxis Awaiting alf facility placement
[2017-03-22] MEDS: RIVAROXABAN 10 MG TABLET PO SCH (22:29)
[2017-03-23] MEDS: OXYCODONE HCL IR 5 MG TABLET PO PRN ×3 (02:04→22:08)
[2017-03-23] MEDS: RINGERS SOLUTION,LACTATED 1,000 ML IV PRN (03:56)
[2017-03-23] MEDS: LANSOPRAZOLE 30 MG TAB.RAP.DR PO SCH (05:35)
[2017-03-23 06:09] LABS: HEMATOCRIT 24.6 % (37.9-51.0); HEMOGLOBIN 8.7 g/dL (13.5-17.0); HGB HCT DIFFERENCE 1.5; MEAN CORPUSCULAR HEMOGLOBIN 33.9 pg (27.0-33.4); MEAN CORPUSCULAR HGB CONC 35.4 g/dL (32.0-36.0); MEAN CORPUSCULAR VOLUME 96 fl (80-97); RED BLOOD COUNT 2.57 10^6/uL (4.35-5.55); RED CELL DISTRIBUTION WIDTH 13.9 % (11.5-14.0); WHITE BLOOD COUNT 10.9 10^3/uL (4.0-10.5)
[2017-03-23 06:22] LABS: BLOOD UREA NITROGEN 13 mg/dL (7-20); CALCIUM 8.6 mg/dL (8.4-10.2); CREATININE RESULT 0.91 mg/dL (0.52-1.25); GLUCOSE 99 mg/dL (75-110); POTASSIUM 3.7 mmol/L (3.6-5.0)
[2017-03-23 06:31] LABS: ANION GAP 5 (5-19); CARBON DIOXIDE 33 mmol/L (22-30); CHLORIDE 101 mmol/L (98-107)
[2017-03-23] MEDS: PREGABALIN 75 MG CAPSULE PO SCH ×2 (11:11→22:08)
[2017-03-23] MEDS: MUPIROCIN 2% OINTMENT 22 GM TP SCH ×2 (11:12→18:14)
[2017-03-23] MEDS: CETIRIZINE 10 MG TABLET PO SCH (11:12)
[2017-03-23] MEDS: HYDROCHLOROTHIAZIDE 25 MG TABLET PO SCH (11:12)
[2017-03-23] MEDS: LACOSAMIDE 100 MG TABLET PO SCH ×2 (11:12→22:08)
[2017-03-23] MEDS: LEVETIRACETAM XR 500 MG TAB.SR.24H PO SCH ×2 (11:15→22:08)
--- NOTE | 2017-03-23 13:24 | PDOC PROGRESS REPORT ---
Subjective Progress Note for:: 03/23/17 Subjective:: Patient seen on rounds this morning. Continues to have pain in his right hip especially with motion and with physical therapy. Denies fever chills or sweats. Denies chest pain or shortness of breath. Physical Exam Vital Signs: Temp Pulse Resp BP Pulse Ox 98.3 F 69 18 101/66 99 03/23/17 11:51 03/23/17 11:51 03/23/17 11:51 03/23/17 11:51 03/23/17 11:51 Intake & Output 03/22/17 03/23/17 03/24/17 06:59 06:59 06:59 Intake Total 4340 5490 Output Total 1200 4850 Balance 3140 640 Weight 94.7 kg 94.7 kg Musculoskeletal exam: PRESENT: other - Right hip: Dressing clean/dry/intact no erythema or drainage. No calf tenderness. Intact plantar flexion/ dorsiflexion. Dorsalis pedis pulse 2+. Results Laboratory Results: 03/23/17 05:55 03/23/17 05:55 03/23/17 03/23/17 05:55 05:55 WBC 10.9 H RBC 2.57 L Hgb 8.7 L Hct 24.6 L MCV 96 MCH 33.9 H MCHC 35.4 RDW 13.9 Plt Count 150 Sodium 139.0 Potassium 3.7 Chloride 101 Carbon Dioxide 33 H Anion Gap 5 BUN 13 Creatinine 0.91 Est GFR ( Amer) > 60 Est GFR (Non-Af Amer) > 60 Glucose 99 Calcium 8.6 Impressions: Chest X-Ray 03/20/17 00:00 IMPRESSION: NO ACUTE RADIOGRAPHIC FINDING IN THE CHEST. Femur X-Ray 03/21/17 00:00 IMPRESSION: Intra procedural imaging and fluoro Fluoroscopy 03/21/17 00:00 IMPRESSION: Intra procedural imaging and fluoro Hip/Pelvis X-Ray 03/21/17 00:00 IMPRESSION: SATISFACTORY POSTOPERATIVE RIGHT HIP. Assessment & Plan - Diagnosis (1) Closed intertrochanteric fracture of right hip Qualifiers: Encounter type: initial encounter Fracture alignment: displaced Qualified Code(s): S72.141A - Displaced intertrochanteric fracture of right femur, initial encounter for closed fracture Is this a current diagnosis for this admission?: Yes Plan: Postop day #2 status post right cephalo-medullary nail intertrochanteric fracture #1 pain control #2 physical therapy weightbearing I have encouraged increased ambulation and effort in physical therapy #3 Xarelto for DVT prophylaxis #4 discharge planning patient will require residential facility versus home health.
--- NOTE | 2017-03-23 15:34 | PDOC PROGRESS REPORT ---
Subjective Progress Note for:: 03/23/17 Subjective:: Pt doing well. Pt states that he is having some pain in the right leg. Physical Exam Vital Signs: Temp Pulse Resp BP Pulse Ox 98.3 F 69 18 101/66 99 03/23/17 11:51 03/23/17 11:51 03/23/17 11:51 03/23/17 11:51 03/23/17 11:51 Intake & Output 03/22/17 03/23/17 03/24/17 06:59 06:59 06:59 Intake Total 4340 5490 Output Total 1200 4850 Balance 3140 640 Weight 94.7 kg 94.7 kg General appearance: PRESENT: no acute distress, well-developed, well-nourished Head exam: PRESENT: atraumatic, normocephalic Eye exam: PRESENT: conjunctiva pink, EOMI, PERRLA. ABSENT: scleral icterus Ear exam: PRESENT: normal external ear exam Mouth exam: PRESENT: moist, tongue midline Neck exam: ABSENT: carotid bruit, JVD, lymphadenopathy, thyromegaly Respiratory exam: PRESENT: clear to auscultation hitesh. ABSENT: rales, rhonchi, wheezes Cardiovascular exam: PRESENT: RRR. ABSENT: diastolic murmur, rubs, systolic murmur Pulses: PRESENT: normal dorsalis pedis pul Vascular exam: PRESENT: normal capillary refill GI/Abdominal exam: PRESENT: normal bowel sounds, soft. ABSENT: distended, guarding, mass, organolmegaly, rebound, tenderness Rectal exam: PRESENT: deferred Extremities exam: PRESENT: full ROM. ABSENT: calf tenderness, clubbing, pedal edema Neurological exam: PRESENT: alert, awake, oriented to person, oriented to place , oriented to time, oriented to situation, CN II-XII grossly intact. ABSENT: motor sensory deficit Psychiatric exam: PRESENT: appropriate affect, normal mood. ABSENT: homicidal ideation, suicidal ideation Skin exam: PRESENT: dry, intact, warm. ABSENT: cyanosis, rash Results Laboratory Results: 03/23/17 05:55 03/23/17 05:55 03/23/17 03/23/17 05:55 05:55 WBC 10.9 H RBC 2.57 L Hgb 8.7 L Hct 24.6 L MCV 96 MCH 33.9 H MCHC 35.4 RDW 13.9 Plt Count 150 Sodium 139.0 Potassium 3.7 Chloride 101 Carbon Dioxide 33 H Anion Gap 5 BUN 13 Creatinine 0.91 Est GFR ( Amer) > 60 Est GFR (Non-Af Amer) > 60 Glucose 99 Calcium 8.6 Impressions: Chest X-Ray 03/20/17 00:00 IMPRESSION: NO ACUTE RADIOGRAPHIC FINDING IN THE CHEST. Femur X-Ray 03/21/17 00:00 IMPRESSION: Intra procedural imaging and fluoro Fluoroscopy 03/21/17 00:00 IMPRESSION: Intra procedural imaging and fluoro Hip/Pelvis X-Ray 03/21/17 00:00 IMPRESSION: SATISFACTORY POSTOPERATIVE RIGHT HIP. Assessment & Plan - Diagnosis (1) Closed intertrochanteric fracture of right hip Qualifiers: Encounter type: initial encounter Fracture alignment: displaced Qualified Code(s): S72.141A - Displaced intertrochanteric fracture of right femur, initial encounter for closed fracture Is this a current diagnosis for this admission?: Yes Plan: S/P Repair: Per Ortho. (2) Abrasion of right elbow Qualifiers: Encounter type: initial encounter Qualified Code(s): S50.311A - Abrasion of right elbow, initial encounter Is this a current diagnosis for this admission?: Yes Plan: Bacitracin. (3) Hypokalemia Is this a current diagnosis for this admission?: Yes Plan: Resolved. (4) Seizure Is this a current diagnosis for this admission?: Yes Plan: Will continue home medications. Ativan PRN. (5) Hyponatremia Is this a current diagnosis for this admission?: Yes Plan: Resolved (6) DVT prophylaxis Is this a current diagnosis for this admission?: Yes Plan: Sharon
[2017-03-23] MEDS: RIVAROXABAN 10 MG TABLET PO SCH (22:08)
[2017-03-24 04:42] LABS: HEMATOCRIT 26.1 % (37.9-51.0); HEMOGLOBIN 9.2 g/dL (13.5-17.0); HGB HCT DIFFERENCE 1.5; MEAN CORPUSCULAR HEMOGLOBIN 34.2 pg (27.0-33.4); MEAN CORPUSCULAR HGB CONC 35.4 g/dL (32.0-36.0); MEAN CORPUSCULAR VOLUME 97 fl (80-97); RED CELL DISTRIBUTION WIDTH 14.2 % (11.5-14.0); WHITE BLOOD COUNT 9.8 10^3/uL (4.0-10.5)
[2017-03-24] MEDS: LANSOPRAZOLE 30 MG TAB.RAP.DR PO SCH (06:17)
[2017-03-24] MEDS: OXYCODONE HCL IR 5 MG TABLET PO PRN ×2 (11:17→17:43)
[2017-03-24] MEDS: ACETAMINOPHEN 325 MG TABLET PO PRN ×2 (11:18→17:45)
[2017-03-24] MEDS: LACOSAMIDE 100 MG TABLET PO SCH ×2 (11:19→21:33)
[2017-03-24] MEDS: PREGABALIN 75 MG CAPSULE PO SCH ×2 (11:20→21:34)
[2017-03-24] MEDS: CETIRIZINE 10 MG TABLET PO SCH (11:21)
[2017-03-24] MEDS: MUPIROCIN 2% OINTMENT 22 GM TP SCH ×2 (11:24→17:46)
[2017-03-24] MEDS: LEVETIRACETAM XR 500 MG TAB.SR.24H PO SCH ×2 (11:29→21:40)
[2017-03-24] MEDS: HYDROCHLOROTHIAZIDE 25 MG TABLET PO SCH (11:30)
[2017-03-24] MEDS ORDERED: GLYCERIN (PEDIATRIC) SUPP.RECT PR ONE ×2 (16:41→17:38)
[2017-03-24] MEDS ORDERED: GLYCERIN (PEDIATRIC) SUPP.RECT PR PRN (16:41)
--- NOTE | 2017-03-24 17:25 | PDOC PROGRESS REPORT ---
Subjective Progress Note for:: 03/24/17 Subjective:: Pt states that he is having problems having bowel movement. Nursing reported that pt has not had a bowel movement. Physical Exam Vital Signs: Temp Pulse Resp BP Pulse Ox 98.1 F 91 18 136/70 H 100 03/24/17 15:36 03/24/17 15:36 03/24/17 15:36 03/24/17 15:36 03/24/17 15:36 Intake & Output 03/23/17 03/24/17 03/25/17 06:59 06:59 06:59 Intake Total 5490 2170 Output Total 4850 2540 Balance 640 -370 Weight 94.7 kg 94.1 kg General appearance: PRESENT: no acute distress, well-developed, well-nourished Head exam: PRESENT: atraumatic, normocephalic Eye exam: PRESENT: conjunctiva pink, EOMI. ABSENT: scleral icterus Ear exam: PRESENT: normal external ear exam Mouth exam: PRESENT: moist, tongue midline Neck exam: ABSENT: carotid bruit, JVD, lymphadenopathy, thyromegaly Respiratory exam: PRESENT: clear to auscultation hitesh. ABSENT: rales, rhonchi, wheezes Cardiovascular exam: PRESENT: RRR. ABSENT: diastolic murmur, rubs, systolic murmur Pulses: PRESENT: normal dorsalis pedis pul GI/Abdominal exam: PRESENT: normal bowel sounds, soft. ABSENT: distended, guarding, mass, organolmegaly, rebound, tenderness Rectal exam: PRESENT: deferred Extremities exam: PRESENT: other - Right hip dressing saturated. Neurological exam: PRESENT: alert, awake, oriented to person, oriented to place , oriented to time, oriented to situation, CN II-XII grossly intact. ABSENT: motor sensory deficit Psychiatric exam: PRESENT: appropriate affect, normal mood. ABSENT: homicidal ideation, suicidal ideation Skin exam: PRESENT: warm. ABSENT: cyanosis, rash Results Laboratory Results: 03/24/17 04:21 03/23/17 05:55 03/24/17 04:21 WBC 9.8 RBC 2.70 L Hgb 9.2 L Hct 26.1 L MCV 97 MCH 34.2 H MCHC 35.4 RDW 14.2 H Plt Count 154 Impressions: Chest X-Ray 03/20/17 00:00 IMPRESSION: NO ACUTE RADIOGRAPHIC FINDING IN THE CHEST. Femur X-Ray 03/21/17 00:00 IMPRESSION: Intra procedural imaging and fluoro Fluoroscopy 03/21/17 00:00 IMPRESSION: Intra procedural imaging and fluoro Hip/Pelvis X-Ray 03/21/17 00:00 IMPRESSION: SATISFACTORY POSTOPERATIVE RIGHT HIP. Assessment & Plan - Diagnosis (1) Constipation Is this a current diagnosis for this admission?: Yes Plan: Will place on Colace and give suppository. (2) Closed intertrochanteric fracture of right hip Qualifiers: Encounter type: initial encounter Fracture alignment: displaced Qualified Code(s): S72.141A - Displaced intertrochanteric fracture of right femur, initial encounter for closed fracture Is this a current diagnosis for this admission?: Yes Plan: S/P Repair: Per Ortho. Pt on Xarelto. (3) Abrasion of right elbow Qualifiers: Encounter type: initial encounter Qualified Code(s): S50.311A - Abrasion of right elbow, initial encounter Is this a current diagnosis for this admission?: Yes Plan: Bacitracin. (4) Hypokalemia Is this a current diagnosis for this admission?: Yes Plan: Resolved. (5) Seizure Is this a current diagnosis for this admission?: Yes Plan: Will continue home medications. Ativan PRN. (6) Hyponatremia Is this a current diagnosis for this admission?: Yes Plan: Resolved (7) DVT prophylaxis Is this a current diagnosis for this admission?: Yes Plan: Xarelto - Time Time Spent with patient: 15-24 minutes
[2017-03-24] MEDS: DOCUSATE SODIUM 100 MG CAPSULE PO SCH (17:46)
--- NOTE | 2017-03-24 18:55 | PDOC PROGRESS REPORT ---
Subjective Subjective:: Patient seen on rounds this morning. Continues to have pain in his right hip especially with motion and with physical therapy. Denies fever chills or sweats. Denies chest pain or shortness of breath. Has seen improvement with physical therapy in the past 24 hours walk 20 feet today. Physical Exam Vital Signs: Temp Pulse Resp BP Pulse Ox 98.1 F 91 18 136/70 H 100 03/24/17 15:36 03/24/17 15:36 03/24/17 15:36 03/24/17 15:36 03/24/17 15:36 Intake & Output 03/23/17 03/24/17 03/25/17 06:59 06:59 06:59 Intake Total 5490 2170 Output Total 4850 2540 Balance 640 -370 Weight 94.7 kg 94.1 kg Musculoskeletal exam: PRESENT: other - Right hip: Serosanguineous drainage proximally. No erythema. Notable ecchymosis and swelling. No calf tenderness. No evidence of limb length inequality. Intact plantar flexion/ dorsiflexion. Results Laboratory Results: 03/24/17 04:21 03/23/17 05:55 03/24/17 04:21 WBC 9.8 RBC 2.70 L Hgb 9.2 L Hct 26.1 L MCV 97 MCH 34.2 H MCHC 35.4 RDW 14.2 H Plt Count 154 Impressions: Chest X-Ray 03/20/17 00:00 IMPRESSION: NO ACUTE RADIOGRAPHIC FINDING IN THE CHEST. Femur X-Ray 03/21/17 00:00 IMPRESSION: Intra procedural imaging and fluoro Fluoroscopy 03/21/17 00:00 IMPRESSION: Intra procedural imaging and fluoro Hip/Pelvis X-Ray 03/21/17 00:00 IMPRESSION: SATISFACTORY POSTOPERATIVE RIGHT HIP. Assessment & Plan - Diagnosis (1) Closed intertrochanteric fracture of right hip Qualifiers: Encounter type: initial encounter Fracture alignment: displaced Qualified Code(s): S72.141A - Displaced intertrochanteric fracture of right femur, initial encounter for closed fracture Is this a current diagnosis for this admission?: Yes Plan: Postop day #2 status post right cephalo-medullary nail intertrochanteric fracture #1 pain control #2 physical therapy weightbearing I have encouraged increased ambulation and effort in physical therapy #3 Xarelto for DVT prophylaxis #4 discharge planning patient will require correction facility versus home health.
[2017-03-24] MEDS: RIVAROXABAN 10 MG TABLET PO SCH (21:34)
[2017-03-24] MEDS: MORPHINE SULFATE 10 MG/ML INJ IV PRN (21:56)
[2017-03-25] MEDS: OXYCODONE HCL IR 5 MG TABLET PO PRN ×4 (01:04→21:55)
[2017-03-25 05:02] LABS: HEMATOCRIT 27.6 % (37.9-51.0); HEMOGLOBIN 9.8 g/dL (13.5-17.0); HGB HCT DIFFERENCE 1.8; MEAN CORPUSCULAR HEMOGLOBIN 34.5 pg (27.0-33.4); MEAN CORPUSCULAR HGB CONC 35.4 g/dL (32.0-36.0); MEAN CORPUSCULAR VOLUME 97 fl (80-97); RED BLOOD COUNT 2.84 10^6/uL (4.35-5.55); RED CELL DISTRIBUTION WIDTH 13.7 % (11.5-14.0); WHITE BLOOD COUNT 9.8 10^3/uL (4.0-10.5)
[2017-03-25] MEDS: LANSOPRAZOLE 30 MG TAB.RAP.DR PO SCH (05:40)
[2017-03-25] MEDS ORDERED: GLYCERIN (PEDIATRIC) SUPP.RECT PR PRN (07:30)
[2017-03-25] MEDS: DOCUSATE SODIUM 100 MG CAPSULE PO SCH ×2 (10:50→18:06)
[2017-03-25] MEDS: LACOSAMIDE 100 MG TABLET PO SCH ×2 (10:51→21:55)
[2017-03-25] MEDS: PREGABALIN 75 MG CAPSULE PO SCH ×2 (10:51→21:55)
[2017-03-25] MEDS: CETIRIZINE 10 MG TABLET PO SCH (10:52)
[2017-03-25] MEDS: HYDROCHLOROTHIAZIDE 25 MG TABLET PO SCH (10:54)
[2017-03-25] MEDS: MUPIROCIN 2% OINTMENT 22 GM TP SCH ×2 (10:55→18:06)
[2017-03-25] MEDS: LEVETIRACETAM XR 500 MG TAB.SR.24H PO SCH ×2 (10:59→21:58)
[2017-03-25] MEDS ORDERED: OXYCODONE HCL IR 5 MG TABLET PO PRN (13:52)
--- NOTE | 2017-03-25 13:55 | PDOC PROGRESS REPORT ---
Subjective Progress Note for:: 03/25/17 Subjective:: She was seen earlier this morning. Patient stated that he is having pain in his right hip and he would like his pain medication adjusted. Patient reports that he can feel the pain in his groin associated with his right hip. Physical Exam Vital Signs: Temp Pulse Resp BP Pulse Ox 98.4 F 83 14 105/57 L 95 03/25/17 10:54 03/25/17 10:54 03/25/17 10:54 03/25/17 10:54 03/25/17 10:54 Intake & Output 03/24/17 03/25/17 03/26/17 06:59 06:59 06:59 Intake Total 2170 1823 Output Total 2540 1970 Balance -370 -147 Weight 94.1 kg 95.4 kg General appearance: PRESENT: mild distress, well-developed, well-nourished Head exam: PRESENT: atraumatic, normocephalic Eye exam: PRESENT: conjunctiva pink, EOMI. ABSENT: scleral icterus Ear exam: PRESENT: normal external ear exam Mouth exam: PRESENT: moist, tongue midline Neck exam: ABSENT: carotid bruit, JVD, lymphadenopathy, thyromegaly Respiratory exam: PRESENT: clear to auscultation hitesh. ABSENT: rales, rhonchi, wheezes Cardiovascular exam: PRESENT: RRR. ABSENT: diastolic murmur, rubs, systolic murmur Pulses: PRESENT: normal dorsalis pedis pul GI/Abdominal exam: PRESENT: normal bowel sounds, soft. ABSENT: distended, guarding, mass, organolmegaly, rebound, tenderness Rectal exam: PRESENT: deferred Extremities exam: PRESENT: full ROM. ABSENT: calf tenderness, clubbing, pedal edema Neurological exam: PRESENT: alert, awake, oriented to person, oriented to place , oriented to time, oriented to situation, CN II-XII grossly intact. ABSENT: motor sensory deficit Psychiatric exam: PRESENT: appropriate affect, normal mood. ABSENT: homicidal ideation, suicidal ideation Skin exam: PRESENT: other - Right thigh dressing saturated. Results Laboratory Results: 03/25/17 04:25 03/23/17 05:55 03/25/17 04:25 WBC 9.8 RBC 2.84 L Hgb 9.8 L Hct 27.6 L MCV 97 MCH 34.5 H MCHC 35.4 RDW 13.7 Plt Count 209 Impressions: Chest X-Ray 03/20/17 00:00 IMPRESSION: NO ACUTE RADIOGRAPHIC FINDING IN THE CHEST. Femur X-Ray 03/21/17 00:00 IMPRESSION: Intra procedural imaging and fluoro Fluoroscopy 03/21/17 00:00 IMPRESSION: Intra procedural imaging and fluoro Hip/Pelvis X-Ray 03/21/17 00:00 IMPRESSION: SATISFACTORY POSTOPERATIVE RIGHT HIP. Assessment & Plan - Diagnosis (1) Constipation Is this a current diagnosis for this admission?: Yes Plan: We will continue with stool softeners. (2) Closed intertrochanteric fracture of right hip Qualifiers: Encounter type: initial encounter Fracture alignment: displaced Qualified Code(s): S72.141A - Displaced intertrochanteric fracture of right femur, initial encounter for closed fracture Is this a current diagnosis for this admission?: Yes Plan: S/P Repair: Per Ortho. Pt on Xarelto. Will increase patient's oxycodone to 7.5 mg p.o. every 3 hours as needed (3) Abrasion of right elbow Qualifiers: Encounter type: initial encounter Qualified Code(s): S50.311A - Abrasion of right elbow, initial encounter Is this a current diagnosis for this admission?: Yes Plan: Bacitracin. (4) Hypokalemia Is this a current diagnosis for this admission?: Yes Plan: Resolved. (5) Seizure Is this a current diagnosis for this admission?: Yes Plan: Will continue home medications. Ativan PRN. (6) Hyponatremia Is this a current diagnosis for this admission?: Yes Plan: Resolved (7) DVT prophylaxis Is this a current diagnosis for this admission?: Yes Plan: Xarelto - Time Time Spent with patient: 15-24 minutes Anticipated discharge: Home
[2017-03-25] MEDS: RIVAROXABAN 10 MG TABLET PO SCH (21:55)
[2017-03-26] MEDS: LANSOPRAZOLE 30 MG TAB.RAP.DR PO SCH (05:29)
[2017-03-26] MEDS ORDERED: BISACODYL 5 MG TABEC PO PRN (08:15)
[2017-03-26] MEDS ORDERED: IBUPROFEN 800 MG TABLET PO PRN (08:15)
[2017-03-26] MEDS: MUPIROCIN 2% OINTMENT 22 GM TP SCH ×2 (10:27→17:43)
[2017-03-26] MEDS: SENNOSIDES/DOCUSATE 8.6-50 MG 1 EACH TABLET PO SCH ×2 (10:28→17:43)
[2017-03-26] MEDS: PREGABALIN 75 MG CAPSULE PO SCH ×2 (10:28→21:29)
[2017-03-26] MEDS: DOCUSATE SODIUM 100 MG CAPSULE PO SCH ×2 (10:28→17:42)
[2017-03-26] MEDS: HYDROCHLOROTHIAZIDE 25 MG TABLET PO SCH (10:29)
[2017-03-26] MEDS: LACOSAMIDE 100 MG TABLET PO SCH ×2 (10:29→21:29)
[2017-03-26] MEDS: CETIRIZINE 10 MG TABLET PO SCH (10:29)
[2017-03-26] MEDS: LEVETIRACETAM XR 500 MG TAB.SR.24H PO SCH ×2 (10:30→21:29)
[2017-03-26] MEDS: ACETAMINOPHEN 325 MG TABLET PO PRN ×2 (10:35→15:35)
[2017-03-26] MEDS: OXYCODONE HCL IR 5 MG TABLET PO PRN ×2 (10:35→15:36)
[2017-03-26] MEDS ORDERED: BISACODYL 5 MG TABEC PO ONE (11:52)
--- NOTE | 2017-03-26 15:06 | PDOC PROGRESS REPORT ---
Subjective Progress Note for:: 03/26/17 Subjective:: Pt complains of drainage from his hip wound Patient denies chest pain, shortness of breath, abdominal pain, nausea, vomiting, fevers, chills, diarrhea, headache, new onset weakness. Patient has not had a BM in 6 days Patient reports he is getting up unassisted Physical Exam Vital Signs: Temp Pulse Resp BP Pulse Ox 98.9 F 90 14 107/58 L 98 03/25/17 23:09 03/26/17 07:00 03/25/17 23:09 03/25/17 23:09 03/25/17 23:09 Intake & Output 03/25/17 03/26/17 03/27/17 06:59 06:59 06:59 Intake Total 1823 2510 Output Total 1970 2375 Balance -147 135 Weight 95.4 kg 95 kg Exam: General: Awake alert and orientedx3 no acute respiratory distress HEENT: AT/NC, PERRL, EOMI, oropharynx is moist, pink, no scleral icterus, no conjunctival injection Neck: No JVD, trachea midline Chest: Clear to auscultation bilaterally, no wheezes rhonchi or rales CV: Regular rate and rhythm, normal S1 and S2, no murmur, rub, or gallop Abdomen: Soft, nontender to palpation, nondistended, hypoactive bowel sounds; no rebound, rigidity, or guarding Extremities: No cyanosis, clubbing; 1+edema RLE SKIN: serosanguinous drainage on waffle dressing Neuro: Cranial nerves II through XII are grossly intact without focal deficits; awake alert and oriented x3 Psych: Normal mood and affect Results Laboratory Results: 03/25/17 04:25 03/23/17 05:55 Impressions: Chest X-Ray 03/20/17 00:00 IMPRESSION: NO ACUTE RADIOGRAPHIC FINDING IN THE CHEST. Femur X-Ray 03/21/17 00:00 IMPRESSION: Intra procedural imaging and fluoro Fluoroscopy 03/21/17 00:00 IMPRESSION: Intra procedural imaging and fluoro Hip/Pelvis X-Ray 03/21/17 00:00 IMPRESSION: SATISFACTORY POSTOPERATIVE RIGHT HIP. Assessment & Plan - Diagnosis (1) Closed intertrochanteric fracture of right hip Qualifiers: Encounter type: initial encounter Fracture alignment: displaced Qualified Code(s): S72.141A - Displaced intertrochanteric fracture of right femur, initial encounter for closed fracture Is this a current diagnosis for this admission?: Yes Plan: Defer treatment and complications related to this to the orthopedic team (2) Constipation Is this a current diagnosis for this admission?: Yes Plan: Have also placed patient on senna Generic Name Dose Route Start Last Admin Trade Name Freq PRN Reason Stop Dose Admin Bisacodyl 10 mg 03/26/17 08:15 Dulcolax 5 Mg Tablet PO 04/25/17 08:14 DAILYP PRN Docusate Sodium 100 mg 03/24/17 18:00 03/26/17 10:28 Colace 100 Mg Capsule PO 04/23/17 17:59 100 mg BID ADRIAN Discontinued Medications Generic Name Dose Route Start Last Admin Trade Name Freq PRN Reason Stop Dose Admin Bisacodyl 20 mg 03/26/17 11:52 03/26/17 12:53 Dulcolax 5 Mg Tablet PO 03/26/17 11:53 20 mg NOW ONE (3) Hypokalemia Is this a current diagnosis for this admission?: Yes Plan: Improved (4) Hyponatremia Is this a current diagnosis for this admission?: Yes Plan: Improved secondary to intravascular volume depletion (5) Seizure Is this a current diagnosis for this admission?: Yes Plan: Patient with a seizure history, but no active seizures. On Vimpat and Keppra (6) DVT prophylaxis Is this a current diagnosis for this admission?: Yes Plan: On Xarelto - Time Time Spent with patient: 25-34 minutes Medications reviewed and adjusted accordingly: Yes Anticipated discharge: Home with Homehealth Within: within 24 hours
--- NOTE | 2017-03-26 19:58 | PDOC PROGRESS REPORT ---
Subjective Subjective:: Patient seen on rounds this morning. Continues to have pain in his right hip especially with motion and with physical therapy. Denies fever chills or sweats. Denies chest pain or shortness of breath. Has seen improvement with physical therapy in the past 24 hours walk 150 feet today. Physical Exam Vital Signs: Temp Pulse Resp BP Pulse Ox 98.2 F 75 18 114/62 98 03/26/17 11:54 03/26/17 19:00 03/26/17 11:54 03/26/17 11:54 03/26/17 11:54 Intake & Output 03/25/17 03/26/17 03/27/17 06:59 06:59 06:59 Intake Total 1823 2510 780 Output Total 1970 2375 500 Balance -147 135 280 Weight 95.4 kg 95 kg Musculoskeletal exam: PRESENT: other - Right Hip:Dressing clear serosanguis drainage posteriorly, Significant ecchymosis posteriorly. Moderate thigh swelling soft and compressible no sign of compartment syndrome. No tenderness along the calf. Negative Homans. Intact plantar flexion/dorsiflexion. Results Laboratory Results: 03/25/17 04:25 03/23/17 05:55 Impressions: Chest X-Ray 03/20/17 00:00 IMPRESSION: NO ACUTE RADIOGRAPHIC FINDING IN THE CHEST. Femur X-Ray 03/21/17 00:00 IMPRESSION: Intra procedural imaging and fluoro Fluoroscopy 03/21/17 00:00 IMPRESSION: Intra procedural imaging and fluoro Hip/Pelvis X-Ray 03/21/17 00:00 IMPRESSION: SATISFACTORY POSTOPERATIVE RIGHT HIP. Assessment & Plan - Diagnosis (1) Closed intertrochanteric fracture of right hip Qualifiers: Encounter type: initial encounter Fracture alignment: displaced Qualified Code(s): S72.141A - Displaced intertrochanteric fracture of right femur, initial encounter for closed fracture Is this a current diagnosis for this admission?: Yes Plan: Postop day #2 status post right cephalo-medullary nail intertrochanteric fracture #1 pain control #2 physical therapy weightbearing I have encouraged increased ambulation and effort in physical therapy #3 Xarelto for DVT prophylaxis #4 discharge planning patient will require custodial facility versus home health. #5 nurse concerned about serosanguineous drainage no sign or symptoms of infection likely secondary to patient's edema from initial injury. We will continue to monitor.
[2017-03-26] MEDS: RIVAROXABAN 10 MG TABLET PO SCH (21:29)
[2017-03-27] MEDS: ACETAMINOPHEN 325 MG TABLET PO PRN (00:11)
[2017-03-27] MEDS: LANSOPRAZOLE 30 MG TAB.RAP.DR PO SCH (06:36)
[2017-03-27] MEDS: SENNOSIDES/DOCUSATE 8.6-50 MG 1 EACH TABLET PO SCH (10:56)
[2017-03-27] MEDS: LEVETIRACETAM XR 500 MG TAB.SR.24H PO SCH (10:56)
[2017-03-27] MEDS: CETIRIZINE 10 MG TABLET PO SCH (10:57)
[2017-03-27] MEDS: DOCUSATE SODIUM 100 MG CAPSULE PO SCH (10:57)
[2017-03-27] MEDS: LACOSAMIDE 100 MG TABLET PO SCH (10:57)
[2017-03-27] MEDS: PREGABALIN 75 MG CAPSULE PO SCH (10:57)
[2017-03-27] MEDS: HYDROCHLOROTHIAZIDE 25 MG TABLET PO SCH (10:58)
[2017-03-27] MEDS: MUPIROCIN 2% OINTMENT 22 GM TP SCH (10:59)
[2017-03-27] MEDS: OXYCODONE HCL IR 5 MG TABLET PO PRN (14:51)
[2017-03-27 17:13] VITALS: BP 122/67
--- NOTE | 2017-03-27 17:47 | PDOC DISCHARGE SUMMARY ---
General - Admit/Disc Date/PCP Admission Date/Primary Care Provider: 03/20/17 17:30 SUHAIL UREÑA MD Discharge Date: 03/27/17 - Discharge Diagnosis (1) Closed intertrochanteric fracture of right hip Is this a current diagnosis for this admission?: Yes (2) Acute blood loss as cause of postoperative anemia Is this a current diagnosis for this admission?: Yes (3) Constipation Is this a current diagnosis for this admission?: Yes (4) Hypokalemia Is this a current diagnosis for this admission?: Yes (5) Hyponatremia Is this a current diagnosis for this admission?: Yes (6) Seizure Is this a current diagnosis for this admission?: Yes - Additional Information Resuscitation Status: Full Code Discharge Diet: Cardiac Discharge Activity: Activity As Tolerated Home Medications: Cetirizine HCl [Zyrtec 10 mg Tablet] 10 mg PO DAILY 03/20/17 Hydrochlorothiazide [Hydrodiuril 25 mg Tablet] 25 mg PO DAILY 03/20/17 Lacosamide [Vimpat] 200 mg PO Q12 03/20/17 Levetiracetam [Levetiracetam ER] 1,000 mg PO Q12 03/20/17 Pregabalin [Lyrica] 150 mg PO Q12 03/20/17 Docusate Sodium [Colace 100 mg Capsule] 100 mg PO BID #60 capsule 03/27/17 Ibuprofen [Motrin 800 mg Tablet] 800 mg PO Q8HP PRN #20 tablet 03/27/17 Oxycodone HCl/Acetaminophen [Oxycodone-Acetaminophen 10-325] 1 each PO Q6HP PRN #12 tablet 03/27/17 Rivaroxaban [Xarelto 10 mg Tablet] 10 mg PO QHS #30 tablet 03/27/17 Sennosides [Senna Laxative] 2 tab PO QHS #60 tablet 03/27/17 History of Present Illness History of Present Illness: EULALIO CASE is a 46 year old male presents to the hospital after falling off the back of truck today. Patient states that he was trying to step off of the back of a truck when he lost his balance and fell on his right side. Patient states that he felt immediate right hip pain after landing on the ground. Patient also reports that he scraped his right elbow. Patient denies any chest pain shortness of breath fever nausea vomiting or diarrhea. Patient does report having productive cough. Pt states that phlegm has been brown to yellow in color. Patient reports that he usually has one seizure a month to one seizure every 2 months[address] Patient reports that Dr. Bolaños is his neurologist. Hospital Course Hospital Course: Patient underwent IM nailing on 03/21/17. Patient had a relatively uneventful postoperative course with the exception of titrating his pain medications and dealing with constipation. These were improved greatly by day of discharge. By day of discharge, patient was able to ambulate of 150 feet with a walker. Patient still complained significantly of edema of his right leg, but we are reassured by surgery that this is normal and his serous drainage from his wound is also normal. Patient feels able to perform normal activities of daily living with home health. Physical Exam Vital Signs: Temp Pulse Resp BP Pulse Ox 98.1 F 85 19 122/67 100 03/27/17 16:00 03/27/17 16:00 03/27/17 16:00 03/27/17 16:00 03/27/17 16:00 Intake & Output 03/26/17 03/27/17 03/28/17 06:59 06:59 06:59 Intake Total 2510 1265 Output Total 2375 1200 Balance 135 65 Weight 95 kg 95 kg Exam: General: Awake alert and orientedx3, no acute respiratory distress HEENT: AT/NC, PERRL, EOMI, oropharynx is moist, pink, no scleral icterus, no conjunctival injection Neck: No JVD, trachea midline Chest: Clear to auscultation bilaterally, no wheezes rhonchi or rales CV: Regular rate and rhythm, normal S1 and S2, no murmur, rub, or gallop Abdomen: Soft, nontender to palpation, nondistended, hypoactive bowel sounds; no rebound, rigidity, or guarding Extremities: No cyanosis, clubbing; 1+edema RLE SKIN: serosanguinous drainage on waffle dressing Neuro: Cranial nerves II through XII are grossly intact without focal deficits; awake alert and oriented x3 Psych: unusual mood and affect Results Laboratory Results: 03/25/17 04:25 03/23/17 05:55 Impressions: Chest X-Ray 03/20/17 00:00 IMPRESSION: NO ACUTE RADIOGRAPHIC FINDING IN THE CHEST. Femur X-Ray 03/21/17 00:00 IMPRESSION: Intra procedural imaging and fluoro Fluoroscopy 03/21/17 00:00 IMPRESSION: Intra procedural imaging and fluoro Hip/Pelvis X-Ray 03/21/17 00:00 IMPRESSION: SATISFACTORY POSTOPERATIVE RIGHT HIP. Qualifiers PATEINT BEING DISCHARGED WITH ANY OF THE FOLLOWING DIAGNOSIS?: No Plan Time Spent: Less than 30 Minutes
== END 2017-03-27 16:52 | disposition home health service (06) | DRG 481 ==
LOC: ER 15:31 → EH 17:30 → 5 18:55
PROVIDERS: ADMIT Emergency Medicine; ATTEND Emergency Medicine
PROC: 0QS606Z Reposition Right Upper Femur with Intramedullary Internal Fixation Device, Open Approach (ICD-10-PCS; principal; 2017-03-21 13:45)
DX: S72.141A Displaced intertrochanteric fracture of right femur, initial encounter for closed fracture (principal); E87.1 Hypo-osmolality and hyponatremia; S50.311A Abrasion of right elbow, initial encounter; W17.89XA Other fall from one level to another, initial encounter; E87.6 Hypokalemia; Y93.39 Activity, other involving climbing, rappelling and jumping off; Y92.9 Unspecified place or not applicable; K59.00 Constipation, unspecified; J45.909 Unspecified asthma, uncomplicated; K21.9 Gastro-esophageal reflux disease without esophagitis; G40.909 Epilepsy, unspecified, not intractable, without status epilepticus; F90.9 Attention-deficit hyperactivity disorder, unspecified type; F32.9 Major depressive disorder, single episode, unspecified; Z87.820 Personal history of traumatic brain injury; F17.200 Nicotine dependence, unspecified, uncomplicated; Z88.0 Allergy status to penicillin; Z88.3 Allergy status to other anti-infective agents
CPT/HCPCS: 01230; 36415; 71010; 80048; 80053; 81001; 83735; 85025; 85027; 85610; 85730; 86850; 86900; 86901; 93005; 93010; 96374; 99284; J0131; J0330; J1100; J1170; J1741; J1885; J2250; J2270; J2405; J2704; J2765; J3010; J3490; J7030; J7120

== ENCOUNTER 2017-05-17 15:13 | Emergency (ER) | payer MEDICAID, MEDICARE ==
--- NOTE | 2017-05-17 15:47 | ER Document Report ---
ED Medical Screen (RME) - General Chief Complaint: Fall Stated Complaint: FALL/RIGHT LEG PAIN Time Seen by Provider: 05/17/17 15:38 Notes: 46-year-old male presents emergency department complaining of right leg pain from his hip down to his foot after a fall 2 days ago. States was a mechanical fall in which he fell on his right knee, has had difficulty walking since. States that this is the same like he injured 5 weeks ago and had surgery on after "shattering" his right knee. TRAVEL OUTSIDE OF THE [place] IN LAST 30 DAYS: No - Related Data Allergies/Adverse Reactions: Cephalosporins Allergy (Mild, Verified 03/20/17 15:47) Penicillins Allergy (Verified 03/20/17 15:47) phenytoin sodium extended [From Dilantin] Adverse Reaction (Intermediate, Verified 03/20/17 15:47) redness Past Medical History - General Information source: Patient Pulmonary Medical History: Reports: Hx Asthma, Hx Pneumonia Neurological Medical History: Reports: Hx Seizures - Onset at the age of 8. Renal/ Medical History: Denies: Hx Peritoneal Dialysis GI Medical History: Reports: Hx Gastroesophageal Reflux Disease Musculoskeltal Medical History: Reports Hx Arthritis - Lumbar spine, neck. Psychiatric Medical History: Reports: Hx Anxiety, Hx Attention Deficit Hyperactivity Disorder, Hx Depression Traumatic Medical History: Reports: Hx Traumatic Brain Injury Past Surgical History: Reports: Hx Adenoidectomy, Hx Neurologic Surgery - CRANIOTOMY, RECENT VNS IMPLANTATION (AUG 2012)., Hx Orthopedic Surgery - Right hand surgery, Hx Tonsillectomy - Immunizations Immunizations up to date: Yes Hx Diphtheria, Pertussis, Tetanus Vaccination: Yes - 2008 History of Influenza Vaccine for 03/2017 - 08/2017 Season: Unknown Review of Systems - Review of Systems Constitutional: No symptoms reported Musculoskeletal: See HPI Physical Exam - Notes Notes: Sitting in wheelchair, only appears mildly uncomfortable Musculoskeletalright knee tender to palpation, exam limited due to fully clothed state. Able to flex and extend at the right ankle, unable to flex or extend the right knee secondary to pain. Course - Re-evaluation Re-evalutation: 05/17/17 15:46 Patient will need further examination in a regular emergency department room in order to address the patient in placement and gown to get a full exam on his right leg. Patient will be sent for x-rays from triage.
--- NOTE | 2017-05-17 16:30 | RADIOLOGY REPORT (SQ) ---
EXAM DESCRIPTION: FEMUR RIGHT COMPLETED DATE/TIME: 05/17/2017 4:17 pm REASON FOR STUDY: fall onto R leg s/p surgery, diff walking COMPARISON: None. NUMBER OF VIEWS: Two views. TECHNIQUE: Two radiographic images acquired of the right femur to include hip and knee in at least o ne projection. LIMITATIONS: None. FINDINGS: MINERALIZATION: Normal. BONES: Status post prior right hip fracture. No acute abnormality. SOFT TISSUES: No obvious swelling or foreign body. OTHER: No other significant finding. IMPRESSION: Stable internal fixation of right hip fracture with no acute abnormality. TECHNICAL DOCUMENTATION: JOB ID: [id number] [employer]- All Rights Reserved
--- NOTE | 2017-05-17 16:30 | RADIOLOGY REPORT (SQ) ---
EXAM DESCRIPTION: PELVIS AP COMPLETED DATE/TIME: 05/17/2017 4:17 pm REASON FOR STUDY: fall onto R leg s/p surgery, diff walking COMPARISON: None. NUMBER OF VIEWS: One view TECHNIQUE: AP Pelvis LIMITATIONS: None. FINDINGS: MINERALIZATION: Normal. HIPS: Internal fixation of right hip fracture. Stable. PELVIS AND SACRUM: No acute fracture or dislocation. No worrisome bone lesions. PUBIS AND ISCHIUM: No acute fracture. LOWER LUMBAR SPINE: No significant findings as visualized. SOFT TISSUES: No findings. OTHER: No other significant finding. IMPRESSION: NEGATIVE STUDY OF THE PELVIS. TECHNICAL DOCUMENTATION: JOB ID: [id number] [employer]- All Rights Reserved
--- NOTE | 2017-05-17 16:32 | RADIOLOGY REPORT (SQ) ---
EXAM DESCRIPTION: TIBIA FIBULA RIGHT COMPLETED DATE/TIME: 05/17/2017 4:17 pm REASON FOR STUDY: fall onto R leg s/p surgery, diff walking COMPARISON: None. NUMBER OF VIEWS: Two views. TECHNIQUE: Two radiographic images acquired of the right tibia and fibula to include the knee and an kle in at least one projection. LIMITATIONS: None. FINDINGS: MINERALIZATION: Normal. BONES: There is a medullary juanita in the distal femur. No acute osseous or joint abnormality is seen. SOFT TISSUES: There is a radiopaque foreign body that overlies the lateral tibial plateau on the AP v iew. OTHER: No other significant finding. IMPRESSION: NEGATIVE STUDY OF THE RIGHT TIBIA AND FIBULA. NO RADIOGRAPHIC EVIDENCE OF ACUTE INJURY. TECHNICAL DOCUMENTATION: JOB ID: [id number] [employer]- All Rights Reserved
--- NOTE | 2017-05-17 16:33 | RADIOLOGY REPORT (SQ) ---
EXAM DESCRIPTION: KNEE RIGHT 3 VIEWS COMPLETED DATE/TIME: 05/17/2017 4:17 pm REASON FOR STUDY: fall onto R leg s/p surgery COMPARISON: 12/11/2011 NUMBER OF VIEWS: Three views. TECHNIQUE: AP, lateral, and sunrise patella radiographic images acquired of the right knee. LIMITATIONS: None. FINDINGS: MINERALIZATION: Normal. BONES: There is a medullary juanita in the distal femur. There is acute osseous abnormality. JOINT: No effusion. SOFT TISSUES: There is a small foreign body in lateral soft tissues. OTHER: No other significant finding. IMPRESSION: Foreign body. No acute osseous abnormality TECHNICAL DOCUMENTATION: JOB ID: [id number] [employer]- All Rights Reserved
--- NOTE | 2017-05-17 16:34 | RADIOLOGY REPORT (SQ) ---
EXAM DESCRIPTION: ANKLE RIGHT COMPLETE COMPLETED DATE/TIME: 05/17/2017 4:17 pm REASON FOR STUDY: fall onto R leg s/p surgery, diff walking COMPARISON: 01/16/2016 NUMBER OF VIEWS: Three views. TECHNIQUE: AP, lateral, and oblique radiographic images acquired of the right ankle. LIMITATIONS: None. FINDINGS: MINERALIZATION: Normal. BONES: No acute fracture or dislocation. No worrisome bone lesions. JOINTS: No effusions. SOFT TISSUES: No soft tissue swelling. No foreign body. OTHER: No other significant finding. IMPRESSION: NEGATIVE STUDY OF THE RIGHT ANKLE. NO RADIOGRAPHIC EVIDENCE OF ACUTE INJURY. TECHNICAL DOCUMENTATION: JOB ID: [id number] [employer]- All Rights Reserved
[2017-05-17] MEDS ORDERED: OXYCODONE-ACETAMINOPHEN 5-325 MG TABLET PO ONE (17:09)
--- NOTE | 2017-05-17 17:15 | ER Document Report ---
HPI - HPI Patient complains to provider of: Right knee pain, leg pain Onset: Other - 2 days Onset/Duration: Persistent Quality of pain: Sharp Pain Level: 4 Context: Patient fractured his right hip 5 weeks ago and had surgery to repair this. Patient states 2 days ago he tripped over uneven ground and fell landing on his right knee. Patient states that it manuela his leg. Patient states since then he has had pain to the right knee into his leg. Associated Symptoms: Other - Right knee, thigh pain Exacerbated by: Standing, Movement, Walking Relieved by: Denies Similar symptoms previously: No Recently seen / treated by doctor: Yes - ROS ROS below otherwise negative: Yes Systems Reviewed and Negative: Yes All other systems reviewed and negative - CONSTITUTIONAL Constitutional: DENIES: Fever, Chills - NEURO Neurology: DENIES: Weakness - GASTROINTESTINAL Gastrointestinal: DENIES: Nausea, Patient vomiting - REPRODUCTIVE Reproductive: DENIES: : - MUSCULOSKELETAL Musculoskeletal: REPORTS: Extremity pain. DENIES: Swelling - DERM Skin Color: Normal Skin Problems: None Past Medical History - General Information source: Patient - Social History Smoking Status: Current Every Day Smoker Chew tobacco use (# tins/day): No Smoking Education Provided: Yes Frequency of alcohol use: None Drug Abuse: None Lives with: Friend Family History: Reviewed & Not Pertinent Patient has suicidal ideation: No Patient has homicidal ideation: No Pulmonary Medical History: Reports: Hx Asthma, Hx Pneumonia Neurological Medical History: Reports: Hx Seizures - Onset at the age of 8. Renal/ Medical History: Denies: Hx Peritoneal Dialysis GI Medical History: Reports: Hx Gastroesophageal Reflux Disease Musculoskeltal Medical History: Reports Hx Arthritis - Lumbar spine, neck. Psychiatric Medical History: Reports: Hx Anxiety, Hx Attention Deficit Hyperactivity Disorder, Hx Depression Traumatic Medical History: Reports: Hx Traumatic Brain Injury Past Surgical History: Reports: Hx Adenoidectomy, Hx Neurologic Surgery - CRANIOTOMY, RECENT VNS IMPLANTATION (AUG 2012)., Hx Orthopedic Surgery - Right hand surgery, right hip, Hx Tonsillectomy - Immunizations Immunizations up to date: Yes Hx Diphtheria, Pertussis, Tetanus Vaccination: Yes - 2008 Hx Pneumococcal Vaccination: 07/01/00 Vertical Provider Document - CONSTITUTIONAL Agree With Documented VS: Yes Exam Limitations: No Limitations General Appearance: WD/WN, No Apparent Distress - INFECTION CONTROL TRAVEL OUTSIDE OF THE [place] IN LAST 30 DAYS: No - HEENT HEENT: Atraumatic, Normocephalic - NECK Neck: Normal Inspection - RESPIRATORY Respiratory: Breath Sounds Normal, No Respiratory Distress O2 Sat by Pulse Oximetry: 94 - CARDIOVASCULAR Cardiovascular: Regular Rate, Regular Rhythm Pulses: Normal: Dorsalis pedis - BACK Back: Normal Inspection - MUSCULOSKELETAL/EXTREMETIES Musculoskeletal/Extremeties: MAEW, Tender - Right knee joint tenderness, r femur tenderness, no joint effusion, no ecchymosis, no edema. No laxity with varus or valgus maneuvers. No external wound, No Edema, Edema. negative: Eccymosis - NEURO Level of Consciousness: Awake, Alert, Appropriate Motor/Sensory: No Motor Deficit - DERM Integumentary: Warm, Dry, No Rash Course - Re-evaluation Re-evalutation: 05/17/17 17:[address] Ryder regarding patient's x-ray findings. Patient with subcutaneous foreign body to the lateral soft tissues of the knee. Patient advised of this finding and encouraged to follow-up with orthopedic doctor for recheck from his fall. Patient without any new skin injury that would explain this soft tissue foreign body. - Vital Signs Vital signs: Temp Pulse Resp BP Pulse Ox 98.2 F 72 20 125/77 94 05/17/17 15:42 05/17/17 15:42 05/17/17 15:42 05/17/17 15:42 05/17/17 15:42 - Diagnostic Test Radiology reviewed: Image reviewed, Reports reviewed Procedures - Immobilization Right Knee Pre-Proc Neuro Vasc Exam: Normal Immobilizer type: Knee immobilizer Performed by: PCT Post-Proc Neuro Vasc Exam: Normal Alignment checked and good: Yes Discharge - Discharge Clinical Impression: Foreign body in subcutaneous tissue, Status post fracture of right hip Knee pain Qualifiers: Chronicity: acute Laterality: right Qualified Code(s): M25.561 - Pain in right knee Fall Qualifiers: Encounter type: initial encounter Qualified Code(s): W19.XXXA - Unspecified fall, initial encounter Condition: Stable Disposition: HOME, SELF-CARE Instructions: Ice & Elevation ([facility]), Knee Immobilizing Splint ([facility]), Oral Narcotic Medication ([facility]), Sprained Knee ([facility]) Additional Instructions: Return immediately for any new or worsening symptoms Followup with your primary care provider, call tomorrow to make a followup appointment Follow-up with your orthopedic surgeon, call their office on Saturday for a follow -up appointment You have an incidental retained foreign body to the soft tissues of your right lateral knee area. It does not appear that this foreign body is a result of your fall from 2 days ago as you do not have any new skin injuries to explain this foreign object. Prescriptions: Oxycodone HCl/Acetaminophen [Percocet 5-325 mg Tablet] 1 tab PO ASDIR PRN #15 tablet PRN Reason: Referrals: CARLO MAZARIEGOS MD [ACTIVE STAFF] - Follow up in 3-5 days
[2017-05-17 17:57] VITALS: BP 122/76
== END 2017-05-17 17:57 | disposition home or self-care (01) ==
LOC: ER 15:13
DX: M25.561 Pain in right knee (principal); M79.604 Pain in right leg; W01.0XXA Fall on same level from slipping, tripping and stumbling without subsequent striking against object, initial encounter; F17.200 Nicotine dependence, unspecified, uncomplicated; Z87.81 Personal history of (healed) traumatic fracture
CPT/HCPCS: 99283; 73610; 73552; 73562; 72170; 73590; L1830

== ENCOUNTER 2017-08-01 21:40 | Emergency (ER) | payer MEDICARE, MEDICAID ==
[2017-08-02] MEDS ORDERED: LEVETIRACETAM 500 MG TABLET PO ONE (00:30)
--- NOTE | 2017-08-02 00:31 | ER Document Report ---
ED Seizure - General Chief Complaint: Probable Seizure Stated Complaint: POSSIBLE SEIZURE Time Seen by Provider: 08/02/17 00:30 Mode of Arrival: Ambulatory Information source: Patient Notes: Patient is a 47-year-old male with a history of epilepsy on Vimpat and Keppra who presents to the ER today after having a seizure in the grocery store. Patient states that this happened around 8:30 PM. He states that he feels completely better now and just did not have his Keppra dose this afternoon. He denies any headache, weakness or any other symptoms. - Related Data Allergies/Adverse Reactions: Cephalosporins Allergy (Mild, Verified 08/01/17 22:05) Penicillins Allergy (Verified 08/01/17 22:05) phenytoin sodium extended [From Dilantin] Adverse Reaction (Intermediate, Verified 08/01/17 22:05) redness Past Medical History - General Information source: Patient - Social History Smoking Status: Unknown if Ever Smoked Family History: Reviewed & Not Pertinent Pulmonary Medical History: Reports: Hx Asthma, Hx Pneumonia Neurological Medical History: Reports: Hx Seizures - Onset at the age of 8. Renal/ Medical History: Denies: Hx Peritoneal Dialysis GI Medical History: Reports: Hx Gastroesophageal Reflux Disease Musculoskeltal Medical History: Reports Hx Arthritis - Lumbar spine, neck. Psychiatric Medical History: Reports: Hx Anxiety, Hx Attention Deficit Hyperactivity Disorder, Hx Depression Traumatic Medical History: Reports: Hx Traumatic Brain Injury Past Surgical History: Reports: Hx Adenoidectomy, Hx Neurologic Surgery - CRANIOTOMY, RECENT VNS IMPLANTATION (AUG 2012)., Hx Orthopedic Surgery - Right hand surgery, right hip, Hx Tonsillectomy - Immunizations Immunizations up to date: Yes Hx Diphtheria, Pertussis, Tetanus Vaccination: Yes - 2008 Hx Pneumococcal Vaccination: 07/01/00 Review of Systems - Review of Systems Constitutional: No symptoms reported EENT: No symptoms reported Cardiovascular: No symptoms reported Respiratory: No symptoms reported Gastrointestinal: No symptoms reported Genitourinary: No symptoms reported Male Genitourinary: No symptoms reported Musculoskeletal: No symptoms reported Skin: No symptoms reported Hematologic/Lymphatic: No symptoms reported Neurological/Psychological: See HPI Physical Exam - Notes Notes: PHYSICAL EXAMINATION: GENERAL: Well-appearing and in no acute distress. HEAD: Atraumatic, normocephalic. EYES: Pupils equal round and reactive to light, extraocular movements intact, sclera anicteric, conjunctiva are normal. ENT: ear canals without erythema or foreign body, TMs pearly john with good bony landmarks, nares patent, oropharynx clear without exudates. Moist mucous membranes. NECK: Normal range of motion, supple without lymphadenopathy LUNGS: CTAB and equal. No wheezes rales or rhonchi. HEART: Regular rate and rhythm without murmurs ABDOMEN: Soft, no tenderness. No guarding, no rebound BACK: no vertebral tenderness, normal ROM GI/: no CVA tenderness EXTREMITIES: Normal range of motion, no pitting edema. No cyanosis. NEUROLOGICAL: Cranial nerves grossly intact. Normal sensory/motor exams. PSYCH: Normal mood, normal affect. SKIN: Warm, Dry, normal turgor, no rashes or lesions noted Course - Re-evaluation Re-evalutation: 08/02/17 01:12 Patient to get his Keppra dose here and go home. Discharge - Discharge Clinical Impression: Seizure Condition: Stable Disposition: HOME, SELF-CARE Additional Instructions: Return immediately for any new or worsening symptoms. Follow up with primary care provider, call tomorrow to make followup appointment. Please take your medicine like you are supposed to.
[2017-08-02 01:35] VITALS: BP 121/91
== END 2017-08-02 01:40 | disposition home or self-care (01) ==
LOC: ER 21:40
DX: G40.909 Epilepsy, unspecified, not intractable, without status epilepticus (principal); Z79.899 Other long term (current) drug therapy
CPT/HCPCS: 99283; A9270

== ENCOUNTER → 2017-09-10 | Outpatient (CLI) | payer MEDICARE, MEDICAID ==
--- NOTE | 2017-09-10 17:56 | RADIOLOGY REPORT (SQ) ---
EXAM DESCRIPTION: L SPINE WHOLE COMPLETED DATE/TIME: 09/10/2017 5:15 pm REASON FOR STUDY: M54.6 PAIN IN THORACIC SPINE M47.816 SPONDYLOSIS W/O MYELOPATHY OR RADICULO M54.6 PAIN IN THORACIC SPINE M47.816 SPONDYLOSIS W/O MYELOPATHY OR RADICULOPATHY, LUMBAR COMPARISON: 12/11/2011 lumbar spine films NUMBER OF VIEWS: Five views including obliques. TECHNIQUE: AP, lateral, oblique, and sacral radiographic images acquired of the lumbar spine. LIMITATIONS: None. FINDINGS: MINERALIZATION: Osteopenic or SEGMENTATION: Normal. No transitional anatomy. ALIGNMENT: Normal. VERTEBRAE: Maintained height. No fracture or worrisome bone lesion. DISCS: Diffuse disc space loss of height with mild vertebral body endplate sclerosis POSTERIOR ELEMENTS: No spondylolysis. Mild left L5-S1 facet arthropathy HARDWARE: None in the spine. PARASPINAL SOFT TISSUES: Normal. PELVIS: Not included in the field of view. SI joints are unremarkable OTHER: No other significant finding. IMPRESSION: Mild diffuse degenerative disc changes TECHNICAL DOCUMENTATION: JOB ID: [id number] [employer]- All Rights Reserved Reading location - IP/workstation name: [email or web address]
--- NOTE | 2017-09-10 17:57 | RADIOLOGY REPORT (SQ) ---
EXAM DESCRIPTION: T SPINE AP/LAT COMPLETED DATE/TIME: 09/10/2017 5:15 pm REASON FOR STUDY: M54.6 M54.6 PAIN IN THORACIC SPINE M47.816 SPONDYLOSIS W/O MYELOPATHY OR RADICUL OPATHY, LUMBAR COMPARISON: Two-view chest 05/31/2016 NUMBER OF VIEWS: Two views. TECHNIQUE: AP and lateral radiographic images acquired of the thoracic spine. LIMITATIONS: None. FINDINGS: MINERALIZATION: Osteopenic ALIGNMENT: Very mild convex rightward upper thoracic curvature VERTEBRAE: Stable rightward T7 vertebral body and anterior T7 vertebral body loss of height. DISCS: Multilevel disc space narrowing with vertebral body endplate sclerosis. HARDWARE: None in the spine. Left-sided jugular neurostimulator leads are present. Old fixation bee te right clavicle MEDIASTINUM AND SOFT TISSUES: Normal heart size and aortic contour. No soft tissue abnormality. VISUALIZED LUNG RAIN: Clear. OTHER: No other significant finding. IMPRESSION: Old T7 compression deformity. Multilevel degenerative disc changes. No definite acute findings TECHNICAL DOCUMENTATION: JOB ID: [id number] [email or web address]- All Rights Reserved Reading location - IP/workstation name: [email or web address]
== END ==
LOC: RAD 16:48
PROVIDERS: ATTEND Family Medicine
DX: M54.6 Pain in thoracic spine (principal); M47.816 Spondylosis without myelopathy or radiculopathy, lumbar region
CPT/HCPCS: 72070; 72110

== ENCOUNTER 2018-08-01 14:15 | Emergency (ER) | payer MEDICARE, MEDICAID ==
[2018-08-01 14:41] LABS: ABSOLUTE BASOPHILS # (AUTO) 0.1 10^3/uL (0.0-0.2); ABSOLUTE EOSINOPHILS # (AUTO) 0.1 10^3/uL (0.0-0.6); ABSOLUTE LYMPHOCYTES (AUTO) 4.3 10^3/uL (0.5-4.7); ABSOLUTE MONOCYTES (AUTO) 0.7 10^3/uL (0.1-1.4); ABSOLUTE NEUT (AUTO) 5.5 10^3/uL (1.7-8.2); BASOPHILS % (AUTO) 0.6 % (0-2); EOSINOPHILS % (AUTO) 0.8 % (0-6); HEMATOCRIT 42.6 % (37.9-51.0); HEMOGLOBIN 14.6 g/dL (13.5-17.0); LYMPHOCYTES % (AUTO) 40.1 % (13-45); MEAN CORPUSCULAR HEMOGLOBIN 32.8 pg (27.0-33.4); MEAN CORPUSCULAR HGB CONC 34.2 g/dL (32.0-36.0); MEAN CORPUSCULAR VOLUME 96 fl (80-97); MONOCYTES % (AUTO) 6.5 % (3-13); PLATELET COUNT 286 10^3/uL (150-450); RED BLOOD COUNT 4.45 10^6/uL (4.35-5.55); RED CELL DISTRIBUTION WIDTH 13.7 % (11.5-14.0); TOTAL CELLS COUNTED % (AUTO) 100 %; WHITE BLOOD COUNT 10.6 10^3/uL (4.0-10.5)
[2018-08-01 14:57] LABS: ALANINE AMINOTRANSFERASE 28 U/L (21-72); ALBUMIN 5.1 g/dL (3.5-5.0); ALKALINE PHOSPHATASE 165 U/L (38-126); ANION GAP 18 (5-19); ASPARTATE AMINO TRANSFERASE 29 U/L (17-59); BILIRUBIN,DIRECT 0.3 mg/dL (0.0-0.4); BILIRUBIN,TOTAL 0.6 mg/dL (0.2-1.3); BLOOD UREA NITROGEN 19 mg/dL (7-20); CALCIUM 10.2 mg/dL (8.4-10.2); CARBON DIOXIDE 27 mmol/L (22-30); CHLORIDE 96 mmol/L (98-107); GLUCOSE 106 mg/dL (75-110); SODIUM 140.9 mmol/L (137-145); TOTAL PROTEIN 8.2 g/dL (6.3-8.2)
[2018-08-01 14:58] LABS: ALCOHOL < 10 mg/dL (NONE DETECTED)
[2018-08-01] MEDS ORDERED: LEVETIRACETAM INJ/PF 500 MG/5 ML SDV IV ONE (15:08)
[2018-08-01] MEDS ORDERED: NORMAL SALINE 1000 ML 1,000 ML IV ONE (15:08)
--- NOTE | 2018-08-01 15:08 | ER Document Report ---
ED General - General Chief Complaint: Altered Mental Status Stated Complaint: ALTERED MENTAL STATUS Time Seen by Provider: 08/01/18 14:45 Notes: Patient is a 48-year-old male with a history of epilepsy on Vimpat and Keppra who comes in with EMS after the patient was seen walking down the street unassisted and had a syncopal/seizure like episode. Patient was slightly confused when EMS arrived. Unknown head trauma. Patient was not speaking upon arrival into the emergency department and is slowly talking. Unable to obtain a full review of systems secondary to patient's condition. TRAVEL OUTSIDE OF THE [place] IN LAST 30 DAYS: No - HPI Onset: Just prior to arrival Onset/Duration: Sudden Quality of pain: Other - Unable to obtain a full review of systems secondary to patient's condition. Severity: None - Unable to obtain a full review of systems secondary to patient's condition.Unable to obtain a full review of systems secondary to patient's condition. Associated symptoms: Other - Unable to obtain a full review of systems secondary to patient's condition. Exacerbated by: Other - Unable to obtain a full review of systems secondary to patient's condition. Relieved by: Other - Unable to obtain a full review of systems secondary to patient's condition. - Related Data Allergies/Adverse Reactions: Cephalosporins Allergy (Mild, Verified 08/01/17 22:05) Penicillins Allergy (Verified 08/01/17 22:05) phenytoin sodium extended [From Dilantin] Adverse Reaction (Intermediate, Verified 08/01/17 22:05) redness Past Medical History - Social History Smoking Status: Unknown if Ever Smoked Family History: Reviewed & Not Pertinent Pulmonary Medical History: Reports: Hx Asthma, Hx Pneumonia Neurological Medical History: Reports: Hx Seizures - Onset at the age of 8. Renal/ Medical History: Denies: Hx Peritoneal Dialysis GI Medical History: Reports: Hx Gastroesophageal Reflux Disease Musculoskeletal Medical History: Reports Hx Arthritis - Lumbar spine, neck. Psychiatric Medical History: Reports: Hx Anxiety, Hx Attention Deficit H yperactivity Disorder, Hx Depression Traumatic Medical History: Reports: Hx Traumatic Brain Injury Past Surgical History: Reports: Hx Adenoidectomy, Hx Neurologic Surgery - CRANIOTOMY, RECENT VNS IMPLANTATION (AUG 2012)., Hx Orthopedic Surgery - Right hand surgery, right hip, Hx Tonsillectomy - Immunizations Immunizations up to date: Yes Hx Diphtheria, Pertussis, Tetanus Vaccination: Yes - 2008 Hx Pneumococcal Vaccination: 07/01/00 Review of Systems - Review of Systems -: Yes ROS unobtainable due to patient's medical condition Physical Exam - Vital signs Vitals: Pulse Resp BP Pulse Ox 112 H 18 113/87 H 92 08/01/18 14:29 08/01/18 14:29 08/01/18 14:29 08/01/18 14:29 Notes: Reviewed vital signs and nursing note as charted by RN. CONSTITUTIONAL: Alert and speaking words without any obvious slurred speech slightly confused. Well-appearing; well-nourished HEAD: Normocephalic; atraumatic EYES: PERRL; no nystagmus; full extraocular range of motion ENT: Normal nose; no rhinorrhea; moist mucous membranes; pharynx without lesions noted NECK: Supple without meningismus; non-tender; no carotid bruit; no cervical lymphadenopathy, no masses CARD: Regular rate and rhythm; no murmurs; symmetric distal pulses RESP: Normal chest excursion without splinting or tachypnea; breath sounds clear and equal bilaterally; no wheezes, no rhonchi, no rales ABD/GI: Normal bowel sounds; non-distended; soft, non-tender; no palpable organomegaly or masses BACK: The back appears normal and is non-tender to palpation EXT: Normal ROM in all joints; non-tender to palpation; no edema SKIN: No acute lesions noted NEURO: CN 2-12 intact; 5/5 bilateral upper and lower extremity strength with sensation intact to light touch Course - Re-evaluation Re-evalutation: Given the above history and physical examination, this could be a postictal period status post seizure given the patient's history. However, given that I am not able to obtain information about the possibility of head trauma, not able to obtain a full history, I will obtain a CT scan of the head as well as basic and cardiac labs. A liter of fluid has been ordered. 08/01/18 15:04 EKG shows a heart rate of 106, sinus tachycardia, normal axis, no ST elevation or depression. 08/01/18 15:27 Patient is now oriented to year, month, and day of the week. Patient states he believes he had a seizure. 1 of his Keppra pills this morning. He states he still has the medications at home. He is followed by the neurologist. Dr. Dia. He denies any headache, chest pain, or neck pain. Given the patient is back to baseline with no pain, oriented x4, we will cancel the CT scan of the head at this time. 08/01/18 16:43 Patient is still acting at baseline in no acute distress. Patient is very calm and cooperative at this time. No focal neurological deficits. He does have a neurologist that he sees. He states he has enough medications at home. Patient states he has a long history of seizure disorders and does have breakthrough seizures often. Patient will be discharged home with strict return precautions. - Vital Signs Vital signs: Temp Pulse Resp BP Pulse Ox 97.8 F 112 H 19 118/83 94 08/01/18 14:51 08/01/18 14:51 08/01/18 14:51 08/01/18 14:51 08/01/18 14:51 - Laboratory Result Diagrams: 08/01/18 14:00 08/01/18 14:00 Laboratory results interpreted by me: 08/01/18 08/01/18 14:00 14:00 WBC 10.6 H Chloride 96 L Creatinine 1.38 H Est GFR (Non-Af Amer) 55 L Alkaline Phosphatase 165 H Albumin 5.1 H Discharge - Discharge Clinical Impression: Seizure Condition: Good Disposition: HOME, SELF-CARE Additional Instructions: Come back immediately with any headaches, chest pain, weakness or numbness, fevers, vomiting, repeat seizures, or any other acute problems. Please make sure that she follow-up with the primary doctor and neurologist as we have discussed and take your medications as directed.
[2018-08-01 16:33] LABS: APPEARANCE,URINE CLEAR; BILIRUBIN,URINE NEGATIVE (NEGATIVE); COLOR,URINE YELLOW; GLUCOSE, URINE NEGATIVE (NEGATIVE); KETONES,URINE NEGATIVE (NEGATIVE); LEUKOCYTE ESTERASE,URINE NEGATIVE (NEGATIVE); NITRITE,URINE NEGATIVE (NEGATIVE); PROTEIN,URINE NEGATIVE (NEGATIVE); URINE SPECIFIC GRAVITY 1.013; UROBILINOGEN,URINE NEGATIVE mg/dL (<2.0)
[2018-08-01 16:47] LABS: URINE AMPHETAMINES SCREEN NEGATIVE; URINE BARBITURATES SCREEN NEGATIVE; URINE BENZODIAZEPINES SCREEN NEGATIVE; URINE COCAINE SCREEN NEGATIVE; URINE MARIJUANA (THC) SCREEN NEGATIVE; URINE METHADONE SCREEN NEGATIVE; URINE PHENCYCLIDINE SCREEN NEGATIVE
[2018-08-01 18:22] VITALS: BP 119/86
--- NOTE | 2018-08-01 18:27 | EKG REPORT ---
SEVERITY:- BORDERLINE ECG - SINUS TACHYCARDIA PROBABLE LEFT ATRIAL ABNORMALITY : Confirmed by: Geovanni Perez MD 01-Aug-2018 18:26:34
== END 2018-08-01 18:22 | disposition home or self-care (01) ==
LOC: ER 14:15
DX: R56.9 Unspecified convulsions (principal); R41.82 Altered mental status, unspecified; R55 Syncope and collapse; Z79.899 Other long term (current) drug therapy; J45.909 Unspecified asthma, uncomplicated
CPT/HCPCS: 93005; 99284; 96365; 36415; 82962; 80307 ×2; 83735; 85025; 80053; 81001; 93010; J7030; J1953

== ENCOUNTER 2018-08-06 16:48 | Emergency (ER) | payer MEDICARE, MEDICAID ==
[2018-08-06] MEDS ORDERED: LEVETIRACETAM 1000 MG/NACL-ISO 1,000 MG/100 ML RTUPB IV ONE (17:15)
--- NOTE | 2018-08-06 17:17 | ER Document Report ---
ED General - General Chief Complaint: Probable Seizure Stated Complaint: POSSIBLE SEIZURE Time Seen by Provider: 08/06/18 17:00 Primary Care Provider: HERLINDA SPAIN MD [EMERITUS] - Follow up in 3-5 days Mode of Arrival: Medic Information source: Patient, Emergency Med Personnel, [facility] Records Notes: 48-year-old male with known seizures, traumatic brain injury, GERD, history of craniotomy presents via EMS after bystanders witnessed the patient fall while walking down the street. Unclear whether patient had seizure-like activity. He has no evidence of trauma on exam and has no physical complaints. Patient is alert, oriented to time and place but cannot tell me the events that led up to him being brought into the emergency department. When asked about his compliance with medication patient states that "my medicine does not get absorbed my blood". Patient currently denies headache, visual changes, nausea, vomiting, chest pain, shortness of breath. TRAVEL OUTSIDE OF THE [place] IN LAST 30 DAYS: No - HPI Onset: Just prior to arrival Quality of pain: No pain Severity: None Associated symptoms: denies: Body/muscle aches, Chest pain, Fever, Nausea, Vomiting, Shortness of breath, Weakness Exacerbated by: Denies Relieved by: Denies Similar symptoms previously: Yes Recently seen / treated by doctor: Yes - Related Data Allergies/Adverse Reactions: Cephalosporins Allergy (Mild, Verified 08/01/17 22:05) Penicillins Allergy (Verified 08/01/17 22:05) phenytoin sodium extended [From Dilantin] Adverse Reaction (Intermediate, Verified 08/01/17 22:05) redness Past Medical History - General Information source: Patient, Emergency Med Personnel, [facility] Records Cannot obtain history due to: Altered mental status - Social History Smoking Status: Never Smoker Frequency of alcohol use: None Drug Abuse: None Lives with: Alone Family History: Reviewed & Not Pertinent Pulmonary Medical History: Reports: Hx Asthma, Hx Pneumonia Neurological Medical History: Reports: Hx Seizures - Onset at the age of 8. Renal/ Medical History: Denies: Hx Peritoneal Dialysis GI Medical History: Reports: Hx Gastroesophageal Reflux Disease Musculoskeletal Medical History: Reports Hx Arthritis - Lumbar spine, neck. Psychiatric Medical History: Reports: Hx Anxiety, Hx Attention Deficit Hyperactivity Disorder, Hx Depression Traumatic Medical History: Reports: Hx Traumatic Brain Injury Past Surgical History: Reports: Hx Adenoidectomy, Hx Neurologic Surgery - CRANIOTOMY, RECENT VNS IMPLANTATION (AUG 2012)., Hx Orthopedic Surgery - Right hand surgery, right hip, Hx Tonsillectomy - Immunizations Immunizations up to date: Yes Hx Diphtheria, Pertussis, Tetanus Vaccination: Yes - 2008 Hx Pneumococcal Vaccination: 07/01/00 Review of Systems - Review of Systems -: Yes ROS unobtainable due to patient's medical condition Physical Exam - Vital signs Vitals: Resp 13 08/06/18 16:55 - Notes Notes: PHYSICAL EXAMINATION: GENERAL: Well-appearing, well-nourished and in no acute distress. GCS 15 HEAD: Atraumatic, normocephalic. EYES: Pupils equal round and reactive to light, extraocular movements intact, sclera anicteric, conjunctiva are normal. ENT: Nares patent, oropharynx clear without exudates. Moist mucous membranes. No hemanotympanum . No blood in nares. No dental fracture NECK: Normal range of motion, supple without lymphadenopathy. Trachea midline LUNGS: Breath sounds clear to auscultation bilaterally and equal. No wheezes rales or rhonchi. HEART: Regular rate and rhythm without murmurs. Pulses intact all throughout. ABDOMEN: Soft, nontender, nondistended abdomen. No guarding, no rebound. No masses appreciated. Musculoskeletal: Normal range of motion, no pitting or edema. No cyanosis. Hip non tender, stable. NEUROLOGICAL: Cranial nerves grossly intact. Normal speech, normal gait. Normal sensory, motor, and reflex exams. PSYCH: Normal mood, normal affect. At reported baseline SKIN: Warm, No active bleeding Course - Re-evaluation Re-evalutation: 08/06/18 19:16 Laboratory 08/06/18 17:52 Sodium 140.9 Potassium 4.2 Chloride 102 Carbon Dioxide 32 H Anion Gap 7 BUN 20 Creatinine 0.95 Est GFR ( Amer) > 60 Est GFR (Non-Af Amer) > 60 Glucose 79 Calcium 9.4 Temp Pulse Resp BP Pulse Ox 20 96 08/06/18 17:00 08/06/18 17:00 08/07/18 02:06 48-year-old male with known seizure history presents via EMS after a witnessed fall on the side of the road. Patient is alert and oriented x2 which is his reported baseline. Patient has had no seizure-like activity throughout his ED course. BMP shows no electrolyte abnormalities. Question of whether patient is being compliant with his medications. Patient has no evidence of trauma on his exam. He is well-known to this department and has been seen recently and previously multiple times for similar symptoms. Patient was given IV Keppra during his ED course. Patient was discharged home in stable condition. 08/07/18 02:06 - Vital Signs Vital signs: Temp Pulse Resp BP Pulse Ox 20 96 08/06/18 17:00 08/06/18 17:00 - Laboratory Result Diagrams: 08/06/18 17:52 Laboratory results interpreted by me: 08/06/18 17:52 Carbon Dioxide 32 H Discharge - Discharge Clinical Impression: Seizure, Nonadherence to medication Condition: Good Disposition: HOME, SELF-CARE Instructions: Seizure, Known Epileptic ([facility]) Additional Instructions: Please take your medications as prescribed. Referrals: HERLINDA SPAIN MD [EMERITUS] - Follow up in 3-5 days
[2018-08-06 19:01] LABS: ANION GAP 7 (5-19); BLOOD UREA NITROGEN 20 mg/dL (7-20); CALCIUM 9.4 mg/dL (8.4-10.2); CARBON DIOXIDE 32 mmol/L (22-30); CHLORIDE 102 mmol/L (98-107); GLUCOSE 79 mg/dL (75-110); POTASSIUM 4.2 mmol/L (3.6-5.0); SODIUM 140.9 mmol/L (137-145)
--- NOTE | 2018-08-06 21:12 | EKG REPORT ---
SEVERITY:- NORMAL ECG - SINUS RHYTHM : Confirmed by: Rogelio Moss 06-Aug-2018 21:11:35
== END 2018-08-06 19:00 | disposition home or self-care (01) ==
LOC: ER 16:48
DX: R56.9 Unspecified convulsions (principal); Z91.14 Patient's other noncompliance with medication regimen; J45.909 Unspecified asthma, uncomplicated
CPT/HCPCS: 93005; 99284; 36415; 80177; 80048; 93010; J1953

== ENCOUNTER 2018-08-08 11:20 | Emergency (ER) | payer MEDICARE, MEDICAID ==
[2018-08-08] MEDS ORDERED: LEVETIRACETAM 1000 MG/NACL-ISO 1,000 MG/100 ML RTUPB IV ONE (13:07)
--- NOTE | 2018-08-08 13:17 | ER Document Report ---
ED General - General Stated Complaint: POSSIBLE SEIZURE Time Seen by Provider: 08/08/18 12:45 Primary Care Provider: GABRIELLE BOWERS MD [NO LOCAL MD] - Follow up in 3-5 days TRAVEL OUTSIDE OF THE [place] IN LAST 30 DAYS: No - HPI Notes: Patient is a 48-year-old male that presents to the emergency department for chief complaint of seizure. Patient has history of seizure disorder. He had a witnessed tonic-clonic seizure while at home today. EMS reports patient had one seizure for the last 2 days as well. He was offered transfer to the hospital after his seizure yesterday but declined. Patient states that he has gotten his Keppra filled at a different pharmacy and is concerned the formulation is not working as well. He also takes Vimpat for seizures. He has no complaints currently. He denies injury during the seizure. Past Medical History: Epilepsy Past Surgical History: Reviewed in chart Social History: Denies drugs alcohol and tobacco Family History: Reviewed and noncontributory for presenting illness Allergies: Reviewed, see documented allergy list. REVIEW OF SYSTEMS: CONSTITUTIONAL : No fever No chills No diaphoresis No recent illness EENT: No vision changes No congestion No sore throat CARDIOVASCULAR: No chest pain No palpitations RESPIRATORY: No shortness of breath No cough No difficulty breathing GASTROINTESTINAL: No abdominal pain No nausea No vomiting No diarrhea GENITOURINARY: No dysuria No hematuria No difficulty urinating MUSCULOSKELETAL: No back pain No leg pain No arm pain SKIN: No rashes No lesions LYMPHATIC: No swollen, enlarged glands. NEUROLOGICAL: No lightheadedness No headache No weakness No paresthesias Seizure PSYCHIATRIC: No anxiety No depression PHYSICAL EXAMINATION: Vital signs reviewed, nursing noted reviewed. GENERAL: Mildly postictal, well-nourished and in no acute distress. HEAD: Atraumatic, normocephalic. EYES: Eyes appear normal, extraocular movements intact, sclera anicteric, conjunctiva are normal. ENT: nares patent, oropharynx clear without exudates. Moist mucous membranes. NECK: Normal range of motion, supple without lymphadenopathy LUNGS: Breath sounds clear to auscultation bilaterally and equal. No wheezes rales or rhonchi. HEART: Regular rate and rhythm without murmurs ABDOMEN: Soft, nontender, normoactive bowel sounds. No rebound, guarding, or rigidity. No masses appreciated. EXTREMITIES: Nontender, good range of motion, no pitting or edema. NEUROLOGICAL: No focal neurological deficits. Moves all extremities spontaneously Motor and sensory grossly intact on exam. PSYCH: Normal mood, normal affect. SKIN: Warm, Dry, normal turgor, no rashes or lesions noted on exposed skin - Related Data Allergies/Adverse Reactions: Cephalosporins Allergy (Mild, Verified 08/01/17 22:05) Penicillins Allergy (Verified 08/01/17 22:05) phenytoin sodium extended [From Dilantin] Adverse Reaction (Intermediate, Verified 08/01/17 22:05) redness Past Medical History - Social History Smoking Status: Never Smoker Family History: Reviewed & Not Pertinent Pulmonary Medical History: Reports: Hx Asthma, Hx Pneumonia Neurological Medical History: Reports: Hx Seizures - Onset at the age of 8. Renal/ Medical History: Denies: Hx Peritoneal Dialysis GI Medical History: Reports: Hx Gastroesophageal Reflux Disease Musculoskeletal Medical History: Reports Hx Arthritis - Lumbar spine, neck. Psychiatric Medical History: Reports: Hx Anxiety, Hx Attention Deficit Hyperactivity Disorder, Hx Depression Traumatic Medical History: Reports: Hx Traumatic Brain Injury Past Surgical History: Reports: Hx Adenoidectomy, Hx Neurologic Surgery - CRANIOTOMY, RECENT VNS IMPLANTATION (AUG 2012)., Hx Orthopedic Surgery - Right hand surgery, right hip, Hx Tonsillectomy - Immunizations Immunizations up to date: Yes Hx Diphtheria, Pertussis, Tetanus Vaccination: Yes - 2008 Hx Pneumococcal Vaccination: 07/01/00 Physical Exam - Vital signs Vitals: Resp 16 08/08/18 11:20 Course - Re-evaluation Re-evalutation: 08/08/18 13:15 Vitals reviewed. Nursing notes reviewed. Patient is alert and conversational but is slow to respond and still appears mildly postictal. Seizure precautions were started. EKG shows no acute ischemia or dysrhythmia. 08/08/18 14:10 Patient has remained hemodynamically stable. He is now much more awake and appears to be back to baseline. He does have someone at home with him who can monitor him for any further seizure activity today. He was encouraged to follow with his neurologist in the next few days to discuss his medications. He was given a Keppra loading dose in the ED for his concerned that his Keppra formulation has been incorrect. Patient is stable at discharge. - Vital Signs Vital signs: Temp Pulse Resp BP Pulse Ox 16 08/08/18 11:20 - EKG Interpretation by Me Additional EKG results interpreted by me: 08/08/18 13:15 Interpreted by myself [id number]: Sinus bradycardia, rate 57, normal axis, no ectopy, no STEMI Discharge - Discharge Clinical Impression: Breakthrough seizure Condition: Stable Disposition: HOME, SELF-CARE Instructions: Seizure, Known Epileptic ([facility]) Additional Instructions: Please return to the emergency department if you have any worsening, or concern of your symptoms. Please return to the emergency department if you develop chest pain, difficulty breathing, severe abdominal pain, or ongoing vomiting. Please follow-up with your primary care physician in 2-3 days and any other recommended physicians. If prescribed, take all medications as directed. If you have any questions or concerns do not hesitate to return the emergency department for evaluation. [] Referrals: GABRIELLE BOWERS MD [NO LOCAL MD] - Follow up in 3-5 days
[2018-08-08 15:27] VITALS: BP 112/80
== END 2018-08-08 15:46 | disposition home or self-care (01) ==
LOC: ER 11:20
DX: G40.909 Epilepsy, unspecified, not intractable, without status epilepticus (principal); Z79.899 Other long term (current) drug therapy; R00.1 Bradycardia, unspecified; J45.909 Unspecified asthma, uncomplicated; Z88.1 Allergy status to other antibiotic agents; Z88.0 Allergy status to penicillin
CPT/HCPCS: 36415; 80177; J1953

== ENCOUNTER 2018-08-08 22:51 | Emergency (ER) | payer MEDICARE, MEDICAID ==
--- NOTE | 2018-08-08 23:33 | ER Document Report ---
ED General - General Chief Complaint: Probable Seizure Stated Complaint: POSSIBLE SEIZURE Time Seen by Provider: 08/08/18 23:01 Notes: Patient is a 48-year old male with a past medical history of epilepsy after a traumatic brain injury who presents after having a seizure. Patient reports that he is been having increased frequency of seizures because he got a different kind of Keppra from the pharmacy and believes that his body is not processing the medication. The patient has come to the emergency department 4 times since the beginning of August 2018 for similar issues. However he has not yet contacted his neurologist regarding his increased seizure frequency. Patient reports compliance of medications. He currently denies any symptoms. No focal weakness or numbness. No headache or neck pain. Denies any trauma during today's episode. He is unable to identify any exact cause as to why he would have increased seizure frequency. No relieving factors. TRAVEL OUTSIDE OF THE [place] IN LAST 30 DAYS: No - Related Data Allergies/Adverse Reactions: Cephalosporins Allergy (Mild, Verified 08/01/17 22:05) Penicillins Allergy (Verified 08/01/17 22:05) phenytoin sodium extended [From Dilantin] Adverse Reaction (Intermediate, Verified 08/01/17 22:05) redness Past Medical History - General Information source: Patient - Social History Smoking Status: Current Every Day Smoker Chew tobacco use (# tins/day): No Frequency of alcohol use: None Drug Abuse: None Family History: Reviewed & Not Pertinent Patient has suicidal ideation: No Patient has homicidal ideation: No Pulmonary Medical History: Reports: Hx Asthma, Hx Pneumonia Neurological Medical History: Reports: Hx Seizures - Onset at the age of 8. Renal/ Medical History: Denies: Hx Peritoneal Dialysis GI Medical History: Reports: Hx Gastroesophageal Reflux Disease Musculoskeletal Medical History: Reports Hx Arthritis - Lumbar spine, neck. Psychiatric Medical History: Reports: Hx Anxiety, Hx Attention Deficit Hyperactivity Disorder, Hx Depression Traumatic Medical History: Reports: Hx Traumatic Brain Injury Past Surgical History: Reports: Hx Adenoidectomy, Hx Neurologic Surgery - CRANIOTOMY, RECENT VNS IMPLANTATION (AUG 2012)., Hx Orthopedic Surgery - Right hand surgery, right hip, Hx Tonsillectomy - Immunizations Immunizations up to date: Yes Hx Diphtheria, Pertussis, Tetanus Vaccination: Yes - 2008 Hx Pneumococcal Vaccination: 07/01/00 Review of Systems - Review of Systems Notes: Constitutional: Negative for fever. HENT: Negative for sore throat. Eyes: Negative for visual changes. Cardiovascular: Negative for chest pain. Respiratory: Negative for shortness of breath. Gastrointestinal: Negative for abdominal pain, vomiting or diarrhea. Genitourinary: Negative for dysuria. Musculoskeletal: Negative for back pain. Skin: Negative for rash. Neurological: Negative for headaches, weakness or numbness. 10 point ROS negative except as marked above and in HPI. Physical Exam - Vital signs Vitals: Temp Pulse Resp BP Pulse Ox 98.3 F 74 16 116/87 H 99 08/08/18 23:06 08/08/18 23:06 08/08/18 23:06 08/08/18 23:06 08/08/18 23:06 Interpretation: Normal Notes: PHYSICAL EXAMINATION: GENERAL: Well-appearing, well-nourished and in no acute distress. HEAD: Atraumatic, normocephalic. EYES: Pupils equal round and reactive to light, extraocular movements intact, sclera anicteric, conjunctiva are normal. ENT: nares patent, oropharynx clear without exudates. Moist mucous membranes. NECK: Normal range of motion, supple without lymphadenopathy LUNGS: Breath sounds clear to auscultation bilaterally and equal. No wheezes rales or rhonchi. HEART: Regular rate and rhythm without murmurs ABDOMEN: Soft, nontender, normoactive bowel sounds. No guarding, no rebound. No masses appreciated. EXTREMITIES: Normal range of motion, no pitting or edema. No cyanosis. NEUROLOGICAL: Face symmetric. Tongue protrudes midline. Extraocular motions intact. Pupils are 2 mm and equally reactive. Normal speech, normal gait. 5 out of 5 strength in both the distal and proximal upper and lower extremities bilaterally. Sensation is grossly intact throughout. Finger to nose testing normal. Pronator drift normal. PSYCH: Normal mood, normal affect. SKIN: Warm, Dry, normal turgor, no rashes or lesions noted. Course - Re-evaluation Re-evalutation: 08/08/18 23:33 Presentation of well-appearing patient after having a seizure. Patient has a known history of seizures. No obvious trigger for today's episode. The patient has returned to baseline without intervention. No focal neurologic deficits. No infectious symptoms, vital sign abnormalities, or evidence of trauma. No indication for laboratories or imaging based on reassuring evaluation and known history of seizures. The patient will be discharged home with recommendations for close follow-up with primary care as well as their neurologist. Return precautions have been reviewed and patient has verbalized understanding. - Vital Signs Vital signs: Temp Pulse Resp BP Pulse Ox 98.2 F 74 16 113/76 97 08/09/18 01:24 08/08/18 23:06 08/08/18 23:06 08/09/18 01:00 08/09/18 01:01 Discharge - Discharge Clinical Impression: Seizure, Breakthrough seizure Condition: Good Disposition: HOME, SELF-CARE Additional Instructions: Today you had a seizure. It is very important that you do not engage in any activities that could result in severe injury should you have a seizure. Specifically, do not drive a vehicle, go into a body of water, take a bath, climb ladders, or operate any heavy machinery until you have been cleared by your neurologist. Please return to the ED immediately if you have multiple seizures close together, develop a severe headache, weakness, numbness, difficulty speaking, have a seizure in which you do not return to normal within 1 hour of the seizure, or have any other symptoms that are concerning to you.
[2018-08-09 01:24] VITALS: BP 113/76
== END 2018-08-09 01:29 | disposition home or self-care (01) ==
LOC: ER 22:51
DX: G40.909 Epilepsy, unspecified, not intractable, without status epilepticus (principal); Z79.899 Other long term (current) drug therapy; F17.200 Nicotine dependence, unspecified, uncomplicated; J45.909 Unspecified asthma, uncomplicated; Z88.1 Allergy status to other antibiotic agents; Z88.0 Allergy status to penicillin
CPT/HCPCS: 99284

== ENCOUNTER 2018-08-09 16:36 | Emergency (ER) | payer MEDICARE, MEDICAID ==
[2018-08-09] MEDS ORDERED: LEVETIRACETAM 1000 MG/NACL-ISO 1,000 MG/100 ML RTUPB IV ONE (17:31)
--- NOTE | 2018-08-09 17:34 | ER Document Report ---
ED Medical Screen (RME) - General Chief Complaint: Probable Seizure Stated Complaint: NEEDS CHANGE OF MEDS Time Seen by Provider: 08/09/18 17:21 Mode of Arrival: Ambulatory Information source: Patient, Relative Notes: 48-year-old male with a past medical history significant for epilepsy after traumatic brain injury presents emergency department after having multiple seizures today. Patient's been seen in the emergency department multiple times this week for seizures. Patient states that he takes Keppra. He believes that he was prescribed the wrong kind of Keppra and that is why he is continuing to have the seizures. Patient has not contacted his neurologist. He states that he has been taking the Keppra as directed. He denies any fever, chills, numbness, tingling, weakness. I have greeted and performed a rapid initial assessment of this patient. A comprehensive ED assessment and evaluation of the patient, analysis of test results and completion of the medical decision making process will be conducted by additional ED providers. PHYSICAL EXAMINATION: GENERAL: Well-appearing, well-nourished and in no acute distress. HEAD: Atraumatic, normocephalic. EYES: Pupils equal round extraocular movements intact, conjunctiva are normal. ENT: Nares patent NECK: Normal range of motion LUNGS: No respiratory distress Musculoskeletal: Normal range of motion NEUROLOGICAL: Normal speech, normal gait. PSYCH: Normal mood, normal affect. SKIN: Warm, Dry, normal turgor, no rashes or lesions noted. TRAVEL OUTSIDE OF THE [place] IN LAST 30 DAYS: No - Related Data Allergies/Adverse Reactions: Cephalosporins Allergy (Mild, Verified 08/09/18 17:11) Penicillins Allergy (Verified 08/09/18 17:11) phenytoin sodium extended [From Dilantin] Adverse Reaction (Intermediate, Verified 08/09/18 17:11) redness Past Medical History - Social History Chew tobacco use (# tins/day): No Frequency of alcohol use: None Drug Abuse: None Pulmonary Medical History: Reports: Hx Asthma, Hx Pneumonia Neurological Medical History: Reports: Hx Seizures - Onset at the age of 8. Renal/ Medical History: Denies: Hx Peritoneal Dialysis GI Medical History: Reports: Hx Gastroesophageal Reflux Disease Musculoskeltal Medical History: Reports Hx Arthritis - Lumbar spine, neck. Psychiatric Medical History: Reports: Hx Anxiety, Hx Attention Deficit Hyperactivity Disorder, Hx Depression Traumatic Medical History: Reports: Hx Traumatic Brain Injury Past Surgical History: Reports: Hx Adenoidectomy, Hx Neurologic Surgery - CRANIOTOMY, RECENT VNS IMPLANTATION (AUG 2012)., Hx Orthopedic Surgery - Right hand surgery, right hip, Hx Tonsillectomy - Immunizations Immunizations up to date: Yes Hx Diphtheria, Pertussis, Tetanus Vaccination: Yes - 2008 History of Influenza Vaccine for 03/2017 - 08/2017 Season: Unknown Physical Exam - Vital signs Vitals: Temp Pulse Resp BP Pulse Ox 97.6 F 63 16 115/71 100 08/09/18 16:58 08/09/18 16:58 08/09/18 16:58 08/09/18 16:58 08/09/18 16:58 Course - Vital Signs Vital signs: Temp Pulse Resp BP Pulse Ox 97.6 F 63 16 115/71 100 08/09/18 16:58 08/09/18 16:58 08/09/18 16:58 08/09/18 16:58 08/09/18 16:58
[2018-08-09 17:54] LABS: ABSOLUTE EOSINOPHILS # (AUTO) 0.2 10^3/uL (0.0-0.6); ABSOLUTE MONOCYTES (AUTO) 0.5 10^3/uL (0.1-1.4); ABSOLUTE NEUT (AUTO) 4.3 10^3/uL (1.7-8.2); BASOPHILS % (AUTO) 0.5 % (0-2); EOSINOPHILS % (AUTO) 2.2 % (0-6); HEMATOCRIT 45.1 % (37.9-51.0); HEMOGLOBIN 15.6 g/dL (13.5-17.0); LYMPHOCYTES % (AUTO) 37.6 % (13-45); MEAN CORPUSCULAR HEMOGLOBIN 32.9 pg (27.0-33.4); MEAN CORPUSCULAR HGB CONC 34.5 g/dL (32.0-36.0); MEAN CORPUSCULAR VOLUME 95 fl (80-97); MONOCYTES % (AUTO) 6.1 % (3-13); PLATELET COUNT 263 10^3/uL (150-450); RED BLOOD COUNT 4.73 10^6/uL (4.35-5.55); RED CELL DISTRIBUTION WIDTH 13.8 % (11.5-14.0); SEGMENTED NEUTROPHILS % (AUTO) 53.6 % (42-78); TOTAL CELLS COUNTED % (AUTO) 100 %; WHITE BLOOD COUNT 7.9 10^3/uL (4.0-10.5)
[2018-08-09 18:01] LABS: APPEARANCE,URINE SLIGHTLY-CLOUDY; BILIRUBIN,URINE NEGATIVE (NEGATIVE); COLOR,URINE AMBER; GLUCOSE, URINE NEGATIVE (NEGATIVE); KETONES,URINE 80 mg/dL (NEGATIVE); LEUKOCYTE ESTERASE,URINE NEGATIVE (NEGATIVE); NITRITE,URINE NEGATIVE (NEGATIVE); PROTEIN,URINE NEGATIVE (NEGATIVE)
[2018-08-09 18:09] LABS: ALANINE AMINOTRANSFERASE 32 U/L (21-72); ALBUMIN 5.1 g/dL (3.5-5.0); ALKALINE PHOSPHATASE 130 U/L (38-126); ANION GAP 12 (5-19); ASPARTATE AMINO TRANSFERASE 60 U/L (17-59); BILIRUBIN,DIRECT 0.3 mg/dL (0.0-0.4); BILIRUBIN,TOTAL 0.6 mg/dL (0.2-1.3); BLOOD UREA NITROGEN 26 mg/dL (7-20); CALCIUM 10.3 mg/dL (8.4-10.2); CARBON DIOXIDE 29 mmol/L (22-30); CHLORIDE 103 mmol/L (98-107); GLUCOSE 84 mg/dL (75-110); POTASSIUM 4.8 mmol/L (3.6-5.0); SODIUM 143.7 mmol/L (137-145); TOTAL PROTEIN 8.2 g/dL (6.3-8.2)
--- NOTE | 2018-08-09 18:30 | ER Document Report ---
ED General - General Chief Complaint: Probable Seizure Stated Complaint: NEEDS CHANGE OF MEDS Time Seen by Provider: 08/09/18 17:21 Mode of Arrival: Ambulatory Notes: Patient is a 48-year-old male with a past medical history significant for epilepsy after traumatic brain injury presents emergency department after having multiple seizures today. Of note, although in triage the patient stated that he had had multiple seizures during my examination the patient adamantly denies despite me asking on 3 separate occasions that he had any seizures today at all. Patient states that he is here strictly for medication changes, denies having even a single seizure today. He denies having stated that he claimed he had se izures in triage. Patient's been seen in the emergency department multiple times this week for seizures. Patient states that he takes Keppra. He believes that he was prescribed the wrong kind of Keppra and that is why he is continuing to have the seizures. Patient has not contacted his neurologist despite being asked to do so on 4 separate occasions since the beginning of this month. I spoke to the patient at length last night prior to discharge and we agreed that he would contact his neurologist first thing in the morning today. When asked why he did not do this the patient states that he did not feel like doing so. He states that he has been taking the Keppra as directed but states that this is not the formulation that he normally takes. He denies any fever, chills, numbness, tingling, weakness. He denies any injury during today's events although again of note he denies that anything happened today. Denies anything is improving or worsen his symptoms. TRAVEL OUTSIDE OF THE [place] IN LAST 30 DAYS: No - Related Data Allergies/Adverse Reactions: Cephalosporins Allergy (Mild, Verified 08/09/18 17:11) Penicillins Allergy (Verified 08/09/18 17:11) phenytoin sodium extended [From Dilantin] Adverse Reaction (Intermediate, Verified 08/09/18 17:11) redness Past Medical History - General Information source: Patient, Relative - Social History Smoking Status: Current Every Day Smoker Chew tobacco use (# tins/day): No Frequency of alcohol use: None Drug Abuse: None Lives with: Spouse/Significant other Family History: Reviewed & Not Pertinent Patient has suicidal ideation: No Patient has homicidal ideation: No Pulmonary Medical History: Reports: Hx Asthma, Hx Pneumonia Neurological Medical History: Reports: Hx Seizures - Onset at the age of 8. Renal/ Medical History: Denies: Hx Peritoneal Dialysis GI Medical History: Reports: Hx Gastroesophageal Reflux Disease Musculoskeletal Medical History: Reports Hx Arthritis - Lumbar spine, neck. Psychiatric Medical History: Reports: Hx Anxiety, Hx Attention Deficit Hyperactivity Disorder, Hx Depression Traumatic Medical History: Reports: Hx Traumatic Brain Injury Past Surgical History: Reports: Hx Adenoidectomy, Hx Neurologic Surgery - CRANIOTOMY, RECENT VNS IMPLANTATION (AUG 2012)., Hx Orthopedic Surgery - Right hand surgery, right hip, Hx Tonsillectomy - Immunizations Immunizations up to date: Yes Hx Diphtheria, Pertussis, Tetanus Vaccination: Yes - 2008 Hx Pneumococcal Vaccination: 07/01/00 Review of Systems - Review of Systems Notes: Constitutional: Negative for fever. HENT: Negative for sore throat. Eyes: Negative for visual changes. Cardiovascular: Negative for chest pain. Respiratory: Negative for shortness of breath. Gastrointestinal: Negative for abdominal pain, vomiting or diarrhea. Genitourinary: Negative for dysuria. Musculoskeletal: Negative for back pain. Skin: Negative for rash. Neurological: Negative for headaches, weakness or numbness. 10 point ROS negative except as marked above and in HPI. Physical Exam - Vital signs Vitals: Temp Pulse Resp BP Pulse Ox 97.6 F 63 16 115/71 100 08/09/18 16:58 08/09/18 16:58 08/09/18 16:58 08/09/18 16:58 08/09/18 16:58 Interpretation: Normal Notes: PHYSICAL EXAMINATION: GENERAL: Well-appearing, well-nourished and in no acute distress. HEAD: Atraumatic, normocephalic. EYES: Pupils equal round and reactive to light, extraocular movements intact, sclera anicteric, conjunctiva are normal. ENT: nares patent, oropharynx clear without exudates. Moist mucous membranes. NECK: Normal range of motion, supple without lymphadenopathy LUNGS: Breath sounds clear to auscultation bilaterally and equal. No wheezes rales or rhonchi. HEART: Regular rate and rhythm without murmurs ABDOMEN: Soft, nontender, normoactive bowel sounds. No guarding, no rebound. No masses appreciated. EXTREMITIES: Normal range of motion, no pitting or edema. No cyanosis. NEUROLOGICAL: Face symmetric. Tongue protrudes midline. Extraocular motions intact. Pupils are 2 mm and equally reactive. Normal speech, normal gait. 5 out of 5 strength in both the distal and proximal upper and lower extremities bilaterally. Sensation is grossly intact throughout. Finger to nose testing normal. Pronator drift normal. PSYCH: Normal mood, normal affect. SKIN: Warm, Dry, normal turgor, no rashes or lesions noted. Course - Re-evaluation Re-evalutation: 08/09/18 18:28 Presentation of well-appearing patient after having a seizure. Patient has a known history of seizures. He has been here repeatedly for similar issues over the past several days. Patient claims that this is due to that his Keppra formulation being different. Despite repeated request to contact his neurologist he has not done so. I again have emphasized to the patient that medication changes need to be done through his general neurologist as it would be inappropriate for a general physician such as an emergency physician to alter the medications of a patient with a known history of epilepsy on multiple antiepileptic drugs. Per the patient's request, I have represcribed Keppra that is short acting as opposed to extended release. The patient does not meet criteria for status epilepticus. The patient has returned to baseline without intervention. No focal neurologic deficits. No infectious symptoms, vital sign abnormalities, or evidence of trauma. No indication for laboratories or imaging based on reassuring evaluation and known history of seizures. The patient will be discharged home with recommendations for close follow-up with primary care as well as their neurologist. Return precautions have been reviewed and patient has verbalized understanding. - Vital Signs Vital signs: Temp Pulse Resp BP Pulse Ox 97.6 F 63 16 115/71 100 08/09/18 16:58 08/09/18 16:58 08/09/18 16:58 08/09/18 16:58 08/09/18 16:58 - Laboratory Result Diagrams: 08/09/18 17:40 08/09/18 17:40 Laboratory results interpreted by me: 08/09/18 08/09/18 17:40 17:40 BUN 26 H Calcium 10.3 H AST 60 H Alkaline Phosphatase 130 H Albumin 5.1 H Urine Ketones 80 H Urine Urobilinogen 2.0 H Discharge - Discharge Clinical Impression: Seizure Epilepsy Qualifiers: Epilepsy type: unspecified Intractability: intractable Status epilepticus: wit hout status epilepticus Qualified Code(s): G40.919 - Epilepsy, unspecified, intractable, without status epilepticus Condition: Good Disposition: HOME, SELF-CARE Additional Instructions: Today you had a seizure. It is very important that you do not engage in any activities that could result in severe injury should you have a seizure. Specifically, do not drive a vehicle, go into a body of water, take a bath, climb ladders, or operate any heavy machinery until you have been cleared by your neurologist. Please return to the ED immediately if you have multiple seizures close together, develop a severe headache, weakness, numbness, difficulty speaking, have a seizure in which you do not return to normal within 1 hour of the seizure, or have any other symptoms that are concerning to you. Prescriptions: Levetiracetam [Keppra 500 mg Tablet] 500 mg PO Q12 #60 tablet
[2018-08-09 18:55] LABS: URINE AMPHETAMINES SCREEN NEGATIVE; URINE BARBITURATES SCREEN NEGATIVE; URINE BENZODIAZEPINES SCREEN NEGATIVE; URINE COCAINE SCREEN NEGATIVE; URINE MARIJUANA (THC) SCREEN UNCONFIRMED POSITIVE; URINE METHADONE SCREEN NEGATIVE; URINE PHENCYCLIDINE SCREEN NEGATIVE
[2018-08-09 19:06] VITALS: BP 109/72
== END 2018-08-09 19:06 | disposition home or self-care (01) ==
LOC: ER 16:36
DX: G40.919 Epilepsy, unspecified, intractable, without status epilepticus (principal); F17.200 Nicotine dependence, unspecified, uncomplicated; Z88.0 Allergy status to penicillin; Z87.820 Personal history of traumatic brain injury
CPT/HCPCS: 99284; 96365; 36415; 85025; 80053; 81001; 80307; J1953

== ENCOUNTER 2019-11-24 17:29 | Emergency (ER) | payer OTHER, MEDICARE, MEDICAID ==
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
[2019-11-24 20:21] VITALS: BP 110/85
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
== END 2019-11-24 21:28 | disposition home or self-care (01) ==
LOC: ER 17:29
DX: S16.1XXA Strain of muscle, fascia and tendon at neck level, initial encounter (principal); M54.6 Pain in thoracic spine; V43.62XA Car passenger injured in collision with other type car in traffic accident, initial encounter; F17.210 Nicotine dependence, cigarettes, uncomplicated; Z88.0 Allergy status to penicillin
CPT/HCPCS: 72070; 72125; 99284